=== PATIENT | female | born 1990 | race Caucasian/White ===

== ENCOUNTER 2018-12-07 12:51 | Outpatient (CLI) | payer BC, SELFPAY ==
[2018-12-07 13:22] LABS: Abs Immature Grans 0.01 k/cumm (0.0-0.09); Absolute Basophil Count 0.01 k/cumm (0.0-0.2); Absolute Eosinophil Count 0.08 k/cumm (0.0-0.7); Absolute Lymphocyte Count 1.65 k/cumm (1.2-3.4); Absolute Monocyte Count 0.47 k/cumm (0.11-0.7); Absolute Neutrophil Count 3.79 k/cumm (1.2-6.7); Basophils % 0.2; Eosinophils % 1.3; HGB 13.1 g/dL (12.0-15.5); Immature Grans % 0.2; Lymphocytes % 27.5; Mean Corp. HGB Concentration 34.5 g/dL (32.0-36.0); Mean Corpuscular Hemoglobin 28.8 pg (27.0-33.0); Mean Corpuscular Volume 83.5 fL (80-95); Mean Platelet Volume 10.1 fL (8.0-11.0); Monocytes % 7.8; Platelet Count 225 x1000/uL (130-400); RBC 4.55 m/cumm (4.00-5.20); RBC Distribution Width 12.1 % (11.7-14.6); White Blood Cell Count 6.01 k/cumm (4.4-10.8)
[2018-12-07 14:16] LABS: ALT 28 U/L (12-78); AST 22 U/L (15-37); Albumin 4.1 g/dL (3.4-5.0); Alkaline Phosphatase 61 U/L (46-116); Anion Gap 9.3 mmol/L (3-11); BUN 8 mg/dL (7-18); Bilirubin, Total 0.3 mg/dL (0.2-1.0); CO2 28.7 mmol/L (21.0-32.0); CREATININE 0.68 mg/dL (0.55-1.02); Calcium 8.9 mg/dL (8.5-10.1); Chloride 102 mmol/L (98-107); Glucose 80 mg/dL (70-100); Potassium 3.5 mmol/L (3.5-5.1); Sodium 140 mmol/L (136-145); Total Protein 7.1 g/dL (6.4-8.2)
== END 2018-12-07 13:11 ==
PROVIDERS: PCP Nurse Practitioner; Visit Provider Family Medicine
DX: K80.50 Calculus of bile duct without cholangitis or cholecystitis without obstruction (principal)
CPT/HCPCS: 36415; 80053; 85025

== ENCOUNTER 2018-12-10 01:20 | Outpatient (CLI) | payer BC, SELFPAY ==
--- NOTE | 2018-12-10 08:27 | DI.US_ITS ---
SYMPTOM/DIAGNOSIS: RUQ TENDERNESS WITH NAUSEA, VOMITING, BILIARY COLIC, K80.50, POSSIBLE CHOLECYSTITIS ABDOMEN ULTRASOUND: Comparison is made with CT of the abdomen dated 02/18/17. The liver and spleen are normal in size and echogenicity. There is no biliary dilatation. The gallbladder has a normal appearance, without evidence of stones or wall thickening. The pancreas, kidneys and aorta are unremarkable. There is no ascites. The IVC is mildly dilated which appears unchanged from previous CT. IMPRESSION: No evidence of gallbladder abnormality or biliary dilatation.
== END 2018-12-10 01:40 ==
PROVIDERS: PCP Nurse Practitioner; Visit Provider Family Medicine
DX: R10.11 Right upper quadrant pain (principal); R11.2 Nausea with vomiting, unspecified; K80.50 Calculus of bile duct without cholangitis or cholecystitis without obstruction
CPT/HCPCS: 76700

== ENCOUNTER 2019-02-03 12:13 | Outpatient (REF) | payer BC, SELFPAY ==
[2019-02-07 14:48] LABS: Chlamydia Result Negative; GC Result Negative; Specimen Description URINE
== END 2019-02-03 12:33 ==
LOC: LBN 12:13
PROVIDERS: PCP Nurse Practitioner; Visit Provider Nurse Practitioner
DX: Z11.3 Encounter for screening for infections with a predominantly sexual mode of transmission (principal)
CPT/HCPCS: 87491; 87591; 81003

== ENCOUNTER 2019-03-15 18:53 | Emergency (ER) | payer BC, SELFPAY ==
[2019-03-15 18:59] VITALS: BP 134/90; PULSE 103; RESP 20; TEMP 36.8; O2SAT 100
--- NOTE | 2019-03-15 19:24 | W.ED.GENAD ---
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 Tylenol and ibuprofen as needed for discomfort. Please follow-up with women's wellness for reevaluation. Number listed below. If you develop fever/chills, increased pain, heavy bleeding or other new/worsening symptoms please seek care urgently once again. We will contact you with any positive results from your outstanding tests. Referrals: Elisha Murillo MD [ [facility] STAFF PHYSICIAN] - Adrianna Jimenez NP [Primary Care Provider] - Medical Decision Making Patient is a 29-year-old female presents today with chief complaint of menorrhagia and menorrhagia for the past 6 months. She reports that over the past 6 months, she has had approximately 3 weeks/month of menstrual bleeding at times can be quite heavy. She is not bleeding currently. She reports that she is homosexual, denies being . No vaginal discharge. Has had irregular menses throughout her menstrual age. However, son typically does have a very or frequent. Is also noted more frequent bruising. States that over the past 6 months, she has had occasional lightheadedness when going from a squatting position to a standing position but that this is not reproducible or typical. Is hydrating well. On exam, she appears nontoxic. Abdomen is soft and benign. UPT is negative. Patient appears nontoxic. Vaginal exam is concerning for small cyst, these are consistent with cervical nabothian cyst. She also has notable cervical ectropion. She had clear vaginal discharge, this was sent for GC and chlamydia testing. She has been tested for STDs historically but not recently. Labs are reassuring. Patient is not anemic. PT PTT are normal. Urine shows trace amount of blood but this may be associated with her just finishing her menses recently. We will have her follow-up at this with her primary care. Have asked the patient follow-up with women's wellness regarding her menorrhagia and menorrhagia. She will call them tomorrow to schedule appointment. We did discuss oral contraceptive but she prefers indwelling not require taking a medication daily as she feels she will forget this. Patient was given strict return precautions. All questions and concerns were addressed she is agreement with this plan. HPI General Mode of arrival: ambulatory. Date/Time Provider Initiated Documentation: 03/15/19 19:04. Limitations to Documentation: no limitations. Information obtained by: patient and RN notes reviewed. History of Present Illness 29 year old F presents to the emergency department with the chief complaint of menorrhagia, metrorrhagia, described as moderate, Quality is described as aching (low central abdominal discomfort, cramping), and is localized to the abdomen. Patient reports no radiation. Patient started experiencing this month(s) (6) and it has been intermittent. No relieving factors improve symptom(s), No exacerbating factors reported . Patient notes loss of appetite (associates with her adderall) and weakness (feels lightheaded occasionally when going to standing position after squatting); denies chest pain, cough, fever/chills, headaches, malaise, nausea/vomiting, rash and shortness of breath. Patient did receive the following treatments prior to arrival, none Related Data Home Medications Medication Instructions Recorded Confirmed dextroamphetamine-amphetamine ER 30 mg PO QAM #30 cap MDD 30mg 01/13/19 03/15/19 30 mg 24hr capsule,extend release spironolactone 100 mg PO HS 03/15/19 03/15/19 Previous Rx's Medication Instructions Recorded dextroamphetamine-amphetamine ER 30 mg PO QAM #30 cap MDD 30mg 01/13/19 30 mg 24hr capsule,extend release Allergies Allergy/AdvReac Type Severity Reaction Status Date / Time gluten AdvReac Mild Abdomen Verified 03/15/19 19:07 Bloating lactose AdvReac Mild Abdomen Verified 03/15/19 19:07 bloating 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 Review of Systems Constitutional Reports as per HPI, Denies chills, Denies fatigue, Denies fever(s) and Denies headache(s) ENT Denies headache(s) Cardiovascular Reports as per HPI, Denies chest pain and Denies dyspnea Respiratory Reports as per HPI, Denies cough and Denies dyspnea Gastrointestinal Reports as per HPI Genitourinary Reports as per HPI, Reports abnormal menses, Reports abnormal vaginal bleeding, Reports metrorrhagia, Denies urinary frequency, Denies genital pruritis, Denies genital lesions, Reports menorrhagia, Denies dyspareunia, Denies urinary urgency, Denies vaginal discharge (is not currently bleeding, no unusual discharge) and Denies vaginal odor Musculoskeletal Reports as per HPI and Denies back pain Integumentary/Breasts Reports as per HPI and Denies rash Neurologic Reports as per HPI and Denies headache(s) Endocrine Denies fatigue [facility] Medical History ADD (attention deficit disorder) (Acute) Crohns disease (Chronic) Irregular menstrual cycle Surgical History Endoscopy Tonsillectomy wisdom teeth extraction Social History Smoking/Tobacco Use Status: Former Tobacco Use Alcohol Intake: current Alcohol Intake frequency: holidays/special occasions only Drug use: Occasionally Substance use type: marijuana Adopted: No Housing: apartment Number of Children: 0 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 What type of physical activity do you participate in: irregular exercise Frequency: other Details: active w/kids at work Do you feel safe at home: Yes Do you feel safe in your relationship?: Yes Exam Const General: cooperative, healthy appearing, comfortable, no acute distress and well developed Nutritional Appearance: average body habitus and well nourished Orientation: alert and awake [facility] Head: normal to inspection Mouth: moist mucous membranes Resp Effort & Inspection: normal respiratory effort, able to speak in complete sentences and no respiratory distress Auscultation: clear to auscultation bilaterally, no rales, no rhonchi and no wheezes Cardio Rate: regular rate Rhythm: regular rhythm Heart Sounds: S1 normal and S2 normal GI Inspection: normal to inspection and non-distended Palpation: soft, no hepatosplenomegaly, not firm, no guarding, not rigid and nontender Percussion: normal to percussion Auscultation: normal bowel sounds External Female Exam: external appearance normal, normal appearance of the urethra, no erythema, no tenderness externally, no external swelling and no lesions Speculum Exam - Vagina: normal appearance of the vagina, normal vaginal discharge, not erythematous, no lacerations, No vaginal bleeding, no swelling and nontender Speculum Exam - Cervix: normal appearance of the cervix (cervical ectropion noted), nabothian cyst (4 small cysts around inferior aspect 5-8 o'clock) and nontender Bimanual Exam- Vagina & Uterus: No cervical tenderness Bimanual Exam- Adnexa, other: normal adnexae, no adnexal masses and no tenderness OB/External & Speculum: No vaginal bleeding Back/Spine/Pelvis Back: no CVA tenderness Skin General skin exam: no rashes or lesions noted Trauma: no lacerations or abrasions Neuro General: alert and awake Cognition: normal cognition Speech: speech normal Gait: normal gait Psych Appearance: grossly normal and well kempt Mental Status: mental status grossly normal Speech and Movement: speech and movement normal Course Vital Signs Temperature 36.8 C 03/15/19 18:59 Pulse 103 H 03/15/19 18:59 Respiratory Rate 20 03/15/19 18:59 Blood Pressure 134/90 03/15/19 18:59 Pulse Oximetry 100 03/15/19 18:59 Temperature 36.8 C 03/15/19 18:59 Temperature Source Skin 03/15/19 18:59 Pulse 103 H 03/15/19 18:59 Respiratory Rate 20 03/15/19 18:59 Respiratory Effort Non-Labored 03/15/19 19:05 Blood Pressure 134/90 03/15/19 18:59 Blood Pressure Position Sitting 03/15/19 18:59 Pulse Oximetry 100 03/15/19 18:59 Oxygen Delivery Method Room Air 03/15/19 18:59 Oxygen Flow Rate 0 03/15/19 18:59
[2019-03-15 19:39] LABS: Bilirubin Negative (Negative); Blood Trace-intact (Negative); Clarity Clear; Glucose Negative (Negative); Ketones Negative (Negative); Leukocyte Esterase Negative (Negative); Nitrite Negative (Negative); Specific Gravity 1.015 (1.005-1.025); Urobilinogen 0.2 EU/dL (Up TO 0.2); pH 7.5 (5-8)
[2019-03-15 19:52] LABS: WBC Negative HPF (0-5)
[2019-03-15 19:53] LABS: Bacteria Rare HPF (Negative); C & S Indicated? No; Casts Negative LPF (Negative); Crystals Negative HPF (Negative); Epithelial Cells Few HPF (Negative); Mucus Negative (Negative); RBC 0-2 (0-2)
--- NOTE | 2019-03-15 20:00 | ED.GENADUL_ITS ---
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 Tylenol and ibuprofen as needed for discomfort. Please follow-up with women's wellness for reevaluation. Number listed below. If you develop fever/chills, increased pain, heavy bleeding or other new/worsening symptoms please seek care urgently once again. We will contact you with any positive results from your outstanding tests. Referrals: Elisha Murillo MD [ [facility] STAFF PHYSICIAN] - Adrianna Jimenez NP [Primary Care Provider] - Medical Decision Making Patient is a 29-year-old female presents today with chief complaint of menorrhagia and menorrhagia for the past 6 months. She reports that over the past 6 months, she has had approximately 3 weeks/month of menstrual bleeding at times can be quite heavy. She is not bleeding currently. She reports that she is homosexual, denies being . No vaginal discharge. Has had irregular menses throughout her menstrual age. However, son typically does have a very or frequent. Is also noted more frequent bruising. States that over the past 6 months, she has had occasional lightheadedness when going from a squatting position to a standing position but that this is not reproducible or typical. Is hydrating well. On exam, she appears nontoxic. Abdomen is soft and benign. UPT is negative. Patient appears nontoxic. Vaginal exam is concerning for small cyst, these are consistent with cervical nabothian cyst. She also has notable cervical ectropion. She had clear vaginal discharge, this was sent for GC and chlamydia testing. She has been tested for STDs historically but not recently. Labs are reassuring. Patient is not anemic. PT PTT are normal. Urine shows trace amount of blood but this may be associated with her just finishing her menses recently. We will have her follow-up at this with her primary care. Have asked the patient follow-up with women's wellness regarding her menorrhagia and menorrhagia. She will call them tomorrow to schedule appointment. We did discuss oral contraceptive but she prefers indwelling not require taking a medication daily as she feels she will forget this. Patient was given strict return precautions. All questions and concerns were addressed she is agreement with this plan. HPI General Mode of arrival: ambulatory . Date/Time Provider Initiated Documentation: 03/15/19 19:04 . Limitations to Documentation: no limitations . Information obtained by: patient and RN notes reviewed . History of Present Illness 29 year old F presents to the emergency department with the chief complaint of menorrhagia, metrorrhagia, described as moderate, Quality is described as aching (low central abdominal discomfort, cramping), and is localized to the abdomen. Patient reports no radiation. Patient started experiencing this month(s) (6) and it has been intermittent. No relieving factors improve symptom(s), No exacerbating factors reported . Patient notes loss of appetite (associates with her adderall) and weakness (feels lightheaded occasionally when going to standing position after squatting); denies chest pain, cough, fever/chills, headaches, malaise, nausea/vomiting, rash and shortness of breath. Patient did receive the following treatments prior to arrival, none Related Data Home Medications Medication Instructions Recorded Confirmed dextroamphetamine-amphetamine ER 30 mg PO QAM #30 cap MDD 30mg 01/13/19 03/15/19 30 mg 24hr capsule,extend release spironolactone 100 mg PO HS 03/15/19 03/15/19 Previous Rx's Medication Instructions Recorded dextroamphetamine-amphetamine ER 30 mg PO QAM #30 cap MDD 30mg 01/13/19 30 mg 24hr capsule,extend release Allergies Allergy/AdvReac Type Severity Reaction Status Date / Time gluten AdvReac Mild Abdomen Verified 03/15/19 19:07 Bloating lactose AdvReac Mild Abdomen Verified 03/15/19 19:07 bloating 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 Review of Systems Constitutional Reports as per HPI, Denies chills, Denies fatigue, Denies fever(s) and Denies headache(s) ENT Denies headache(s) Cardiovascular Reports as per HPI, Denies chest pain and Denies dyspnea Respiratory Reports as per HPI, Denies cough and Denies dyspnea Gastrointestinal Reports as per HPI Genitourinary Reports as per HPI, Reports abnormal menses, Reports abnormal vaginal bleeding, Reports metrorrhagia, Denies urinary frequency, Denies genital pruritis, Denies genital lesions, Reports menorrhagia, Denies dyspareunia, Denies urinary urgency, Denies vaginal discharge (is not currently bleeding, no unusual discharge) and Denies vaginal odor Musculoskeletal Reports as per HPI and Denies back pain Integumentary/Breasts Reports as per HPI and Denies rash Neurologic Reports as per HPI and Denies headache(s) Endocrine Denies fatigue [facility] Medical History ADD (attention deficit disorder) (Acute) Crohns disease (Chronic) Irregular menstrual cycle Surgical History Endoscopy Tonsillectomy wisdom teeth extraction Social History Smoking/Tobacco Use Status: Former Tobacco Use Alcohol Intake: current Alcohol Intake frequency: holidays/special occasions only Drug use: Occasionally Substance use type: marijuana Adopted: No Housing: apartment Number of Children: 0 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 What type of physical activity do you participate in: irregular exercise Frequency: other Details: active w/kids at work Do you feel safe at home: Yes Do you feel safe in your relationship?: Yes Exam Const General: cooperative, healthy appearing, comfortable, no acute distress and well developed Nutritional Appearance: average body habitus and well nourished Orientation: alert and awake [facility] Head: normal to inspection Mouth: moist mucous membranes Resp Effort & Inspection: normal respiratory effort, able to speak in complete sentences and no respiratory distress Auscultation: clear to auscultation bilaterally, no rales, no rhonchi and no wheezes Cardio Rate: regular rate Rhythm: regular rhythm Heart Sounds: S1 normal and S2 normal GI Inspection: normal to inspection and non-distended Palpation: soft, no hepatosplenomegaly, not firm, no guarding, not rigid and nontender Percussion: normal to percussion Auscultation: normal bowel sounds External Female Exam: external appearance normal, normal appearance of the urethra, no erythema, no tenderness externally, no external swelling and no lesions Speculum Exam - Vagina: normal appearance of the vagina, normal vaginal discharge, not erythematous, no lacerations, No vaginal bleeding, no swelling and nontender Speculum Exam - Cervix: normal appearance of the cervix (cervical ectropion noted), nabothian cyst (4 small cysts around inferior aspect 5-8 o'clock) and nontender Bimanual Exam- Vagina & Uterus: No cervical tenderness Bimanual Exam- Adnexa, other: normal adnexae, no adnexal masses and no tenderness OB/External & Speculum: No vaginal bleeding Back/Spine/Pelvis Back: no CVA tenderness Skin General skin exam: no rashes or lesions noted Trauma: no lacerations or abrasions Neuro General: alert and awake Cognition: normal cognition Speech: speech normal Gait: normal gait Psych Appearance: grossly normal and well kempt Mental Status: mental status grossly normal Speech and Movement: speech and movement normal Course Vital Signs Temperature 36.8 C 03/15/19 18:59 Pulse 103 H 03/15/19 18:59 Respiratory Rate 20 03/15/19 18:59 Blood Pressure 134/90 03/15/19 18:59 Pulse Oximetry 100 03/15/19 18:59 Temperature 36.8 C 03/15/19 18:59 Temperature Source Skin 03/15/19 18:59 Pulse 103 H 03/15/19 18:59 Respiratory Rate 20 03/15/19 18:59 Respiratory Effort Non-Labored 03/15/19 19:05 Blood Pressure 134/90 03/15/19 18:59 Blood Pressure Position Sitting 03/15/19 18:59 Pulse Oximetry 100 03/15/19 18:59 Oxygen Delivery Method Room Air 03/15/19 18:59 Oxygen Flow Rate 0 03/15/19 18:59
[2019-03-15 20:03] LABS: Abs Immature Grans 0.03 k/cumm (0.0-0.09); Absolute Basophil Count 0.01 k/cumm (0.0-0.2); Absolute Eosinophil Count 0.03 k/cumm (0.0-0.7); Absolute Monocyte Count 0.43 k/cumm (0.11-0.7); Absolute Neutrophil Count 6.91 k/cumm (1.2-6.7); Basophils % 0.1; Eosinophils % 0.3; HCT 36.9 % (36.0-46.0); HGB 12.6 g/dL (12.0-15.5); Immature Grans % 0.3; Lymphocytes % 21.3; Mean Corp. HGB Concentration 34.1 g/dL (32.0-36.0); Mean Corpuscular Hemoglobin 29.1 pg (27.0-33.0); Mean Corpuscular Volume 85.2 fL (80-95); Mean Platelet Volume 9.6 fL (8.0-11.0); Monocytes % 4.6; Neutrophils % 73.4; Platelet Count 258 x1000/uL (130-400); RBC 4.33 m/cumm (4.00-5.20); RBC Distribution Width 12.9 % (11.7-14.6); White Blood Cell Count 9.41 k/cumm (4.4-10.8)
[2019-03-15 20:17] LABS: INR 1.1 (0.9-1.1); PTT Activated 25.4 sec (21.0-31.4); Prothrombin Time 10.6 sec (9.3-11.0)
[2019-03-15 20:26] LABS: ALT 19 U/L (12-78); AST 16 U/L (15-37); Albumin 4.1 g/dL (3.4-5.0); Alkaline Phosphatase 67 U/L (46-116); Anion Gap 9.4 mmol/L (3-11); BUN 6 mg/dL (7-18); Bilirubin, Total 0.4 mg/dL (0.2-1.0); CO2 25.6 mmol/L (21.0-32.0); CREATININE 0.65 mg/dL (0.55-1.02); Chloride 104 mmol/L (98-107); Glucose 105 mg/dL (70-100); Potassium 3.8 mmol/L (3.5-5.1); Sodium 139 mmol/L (136-145); Total Protein 7.4 g/dL (6.4-8.2)
[2019-03-15 21:25] VITALS: PULSE 107; O2SAT 96
== END 2019-03-15 22:21 | disposition home or self-care (01) ==
PROVIDERS: Emergency Provider Physician Assistant; PCP Nurse Practitioner
DX: N93.9 Abnormal uterine and vaginal bleeding, unspecified (principal); N88.8 Other specified noninflammatory disorders of cervix uteri
CPT/HCPCS: 36415; 80053; 81025; 99283; 81003; 81015; 84443; 85025; 85610; 85730

== ENCOUNTER 2019-03-16 15:44 | Outpatient (REF) | payer BC, SELFPAY ==
[2019-03-17 14:22] LABS: Chlamydia Result Negative; GC Result Negative; Specimen Description CERVIX
== END 2019-03-16 16:04 ==
LOC: LBN 15:44
PROVIDERS: PCP Nurse Practitioner; Visit Provider Nurse Practitioner Women's Health
DX: Z11.3 Encounter for screening for infections with a predominantly sexual mode of transmission (principal)
CPT/HCPCS: 87491; 87591

== ENCOUNTER 2019-03-17 00:47 | Outpatient (CLI) | payer BC, SELFPAY ==
--- NOTE | 2019-03-17 14:00 | DI.US_ITS ---
SYMPTOMS/DIAGNOSIS: RIGHT-SIDED PELVIC PAIN, ABNORMAL UTERINE BLEEDING, R10.2 PELVIC ULTRASOUND: A transabdominal and transvaginal examination was carried out. The uterus measures 6 cm in length, 3.4 cm in height and 3.8 cm in width with an endometrial stripe thickness of 5.2 mm. Prominent uterine vessels are demonstrated. The right ovary measures 4.7 x 1.7 x 2.8 cm and contains a 1.4 x 1 x 1.7 cm cyst. The left ovary measures 3. x 1.7 x 2.1 cm. A paraovarian cyst measures 1 x 0.9 x 1.7 cm. There is no evidence of free fluid in the cul-de-sac. The right kidney measures 10.5 cm, the left kidney 10.7 cm. There is no evidence of hydronephrosis. SUMMARY: A right ovarian cyst measures 1.4 x 1 x 1.7 cm and could represent a corpus luteum cyst. There is a 1 x 0.9 x 1.7 cm cyst in the left paraovarian region.
== END 2019-03-17 01:07 ==
PROVIDERS: PCP Nurse Practitioner; Visit Provider Nurse Practitioner Women's Health
DX: R10.2 Pelvic and perineal pain (principal); N93.9 Abnormal uterine and vaginal bleeding, unspecified; N83.11 Corpus luteum cyst of right ovary; N83.292 Other ovarian cyst, left side
CPT/HCPCS: 76830; 76856

== ENCOUNTER 2020-06-23 19:46 | Emergency (ER) | payer SELFPAY ==
[2020-06-23 19:57] VITALS: BP 131/96; RESP 18; TEMP 36.5; O2SAT 100
--- NOTE | 2020-06-23 20:00 | DI.CT_ITS ---
EXAM: CT ABDOMEN PELVIS W CLINICAL HISTORY: pelvic pain/L flank, hx of cysts and kidney stones. TECHNIQUE: Imaging Protocol: Axial computed tomography images with coronal and sagittal reformatted images were created and reviewed CONTRAST MATERIAL: Intravenous: Omnipaque 350 Contrast volume:80 ml Oral: no COMPARISON: CT ABD PELVIS WITH CONTRAST from 02/18/2017 FINDINGS: The exam is limited by lack of oral contrast and lack of intra-abdominal fat. ABDOMEN: Lung Bases: Normal where visualized. Liver: Normal density. No measurable mass. Gallbladder and biliary tract: No radiodense calculus or dilation. Pancreas: Normal density, no abnormal calcifications or inflammatory process. Spleen: Normal. Kidneys: Incomplete rotation of the right kidney.. No radiodense stones or obstructive uropathy. No masses seen. Adrenal glands: No masses seen. Abdominal Aorta: Abdominal portion non-dilated. PELVIS: Bladder: Nearly empty. Bowel: No obstruction or bowel wall thickening. Appendix not visualized. The cecum per projects low and posteriorly in the pelvis. Peritoneal cavity: There is free fluid in the cul-de-sac.. Bones: Within normal limits. Reproductive organs: Within normal limits. Lymph nodes: 3.3 centimeter right ovarian cyst. Uterus is normal in size. There are prominent pelvi c vessels, greater on the left side which was seen on the previous exam. Findings could represent pe lvic congestion syndrome. Impression: 3.3 centimeter right ovarian cyst. Small amount fluid in the cul-de-sac. Prominent periuterine vein s which could represent pelvic congestion syndrome. RADIATION DOSE DELIVERED: 551.02mGy.cm Total DLP DATA REPOSITORY: All CT scans at this facility are submitted to the National Radiology Data Registry (NRDR) Dose Index Registry (DIR) with the [employer] ([employer]). RADIATION OPTIMIZATION: All CT scans at this facility use at least one of these dose optimization te chniques: automated exposure control; mA and/or kV adjustment per patient size (includes targeted exa ms where dose is matched to clinical indication); or iterative reconstruction.
[2020-06-23 20:01] LABS: Bilirubin Small (Negative); Blood Small (Negative); Clarity Clear (Clear); Glucose Negative (Negative); Ketones 40 mg/dL (Negative); Leukocyte Esterase Negative (Negative); Nitrite Negative (Negative); Specific Gravity >= 1.030 (1.005-1.025); Urobilinogen 0.2 EU/dL (Up TO 0.2); pH 5.5 (5-8)
--- NOTE | 2020-06-23 20:08 | W.ED.GENAD ---
Discharge Plan Disposition Patient Disposition: HOME Condition: Good Discharge Details Clinical Impression: Unspecified ovarian cyst, right side, Vaginal spotting, Pelvic pain, Lesion of uterus, Gardnerella vaginitis Primary Care Provider: Adrianna Jimenez ED Provider: Bernabe Contreras Home Meds and New Rx's Prescriptions: New metronidazole 500 mg tablet 500 mg PO BID Qty: 20 RF: 0 Continued tretinoin [Retin-A] 0.1 % cream 1 applic TP QHS Qty: 20 RF: 6 spironolactone 100 mg tablet 150 mg PO DAILY Qty: 135 RF: 0 doxycycline monohydrate 100 mg capsule 100 mg PO BID RF: 0 Discharge Instructions Instructions: Ovarian Cyst (ED) Additional Instructions: At this time you have a large cyst in your right ovary. It did cause mild bleeding which is likely the cause of your pain. At this time there is no evidence of a surgical emergency, however if you notice any worsening or change in your pain, any worsening vaginal bleeding, return immediately for reassessment. Dr. Murillo of gynecology will be contacting you this weekend. Please follow-up closely with her this week. Please take 1000 mg of Tylenol every 6 hours and 800 mg of ibuprofen every 6 hours to help with the pain. Drink plenty of fluids. You will need an ultrasound on an outpatient basis for further assessment. If you do decide to take 1 of the Barry pain pills, do not take any Tylenol with it as it already has a small dose of Tylenol in it. You also have a lesion on your uterus, this is not overly concerning but certainly does need further evaluation. Dr. Murillo will follow up with you with this. Additionally you also have mild bacterial vaginosis which is from a type of bacteria that is not an STD. It is naturally occurring in the pelvic region however sometimes it can grow and cause some irritation. I suspect this is a component of your symptoms but not the only cause of your pain. Please take the metronidazole as directed. Make sure to drink no alcohol when taking this medication as it can cause a significant reaction. Additionally we are still pending results from gonorrhea and chlamydia. It is very unlikely that you have this, however it does take 2 to 3 days to come back. You can follow-up with Dr. Murillo about this. If you notice any worsening of your symptoms, or any new symptoms such as vomiting, diarrhea, fever, chills, shortness of breath, chest pain, numbness, weakness, or fainting , please return immediately to the emergency department for reevaluation. Please follow up with your primary care provider as soon as possible for reassessment and reevaluation. As always, it was a pleasure participating in your medical care today. Referrals: Elisha Mruillo MD [ [facility] STAFF PHYSICIAN] - Medical Decision Making 30-year-old female with a past medical history of ovarian cyst/corpus luteal cyst, asthma, presents today for evaluation of vaginal spotting, urinary pain and pelvic pain. Patient states that over the last 2 to 3 months she has had intermittent vaginal spotting both with and without her periods. The patient states that she is sexually active with a female only, and does not have heterosexual intercourse. She denies any history of STDs. She does not take control. This evening she had sudden onset severe pelvic and left-sided pelvic/flank pain that occurred when she urinated. She did not notice any blood. The pain subsided when she stopped urinating. Since then she has had mild achiness on the left and right pelvic regions more primarily on the left though. She denies any vomiting or diarrhea. She denies any hematochezia or melena. She denies history of kidney stones. Patient does have a strong family history of kidney stones especially in her sister who is had multiple kidney stones. Family history is also positive for breast cancer and ovarian cancer. Patient has no other complaints at this time. No other modifying factors. Of note the patient does state that there was a concern for Crohn's disease in her past, however after colonoscopy she was found not to have Crohn's disease at all. Physical exam demonstrates mild left lower pelvic pain, as well as left-sided flank tenderness. Vital signs are stable. We will perform pelvic exam, differential does include kidney stone with her strong family history and urinary symptomatology but also ovarian cysts as a potential cause of her spotting and pain. Symptoms appear inconsistent with ovarian torsion at this time clinically. Ultrasonography is unavailable. We will get a CT scan with contrast for further evaluation of stone and cyst. We will monitor closely. Currently the patient has no pain whatsoever and does not want any pain medications. 10:08 PM Laboratory work-up is returned relatively benign, no white count, hemoglobin stable. Urinalysis negative for evidence of infection. Vaginal path screen is positive for Gardnerella, negative for trichomoniasis or Margarette. Will treat with metronidazole p.o. [address] scan has returned, no evidence of kidney stones, there is evidence of a large right-sided ovarian cyst, with a rim enhancing component which is asymmetric. There is mild amount of free fluid as well. There is also heterogenicity of the uterus and a hyperdensity within the fundal endometrium for which an endometrial polyp or other pathology could be present. Vaginal exam was performed does not demonstrate a chandelier sign, minimal tenderness on palpation of the cervix, symptoms clinically inconsistent with infectious PID. Additionally repeat exam demonstrates symptoms inconsistent with ovarian torsion as well. No indication for emergent transfer to [facility] for ultrasonography at this time. However symptoms certainly do need prompt follow-up. I did contact Dr. Murillo from OB, discussed the radiologic findings, as well as the current clinical presentation. With no evidence of an acute surgical or pelvic abdomen at this time, he had no clinical signs of ovarian torsion or severe PID at this time, Dr. Murillo feels that the patient can follow-up promptly with her on an outpatient basis for evaluation and ultrasonography. I spent a long and thorough time discussing with the patient the importance of self-monitoring and if she has any worsening of her symptoms whatsoever or continuation without resolution that she should return immediately to the ED for reevaluation and reassessment. Patient understands this. She will follow-up closely with Dr. Murillo. Dr. Murillo has also stated that she will be calling the patient this weekend for follow-up. I have extensively reviewed the treatment plan and discharge instructions with the patient. I have addressed all patient concerns at this time. The patient was made aware of what symptoms to monitor for that would warrant a return to the emergency department. Discussed the plan with the patient, they demonstrate verbal understanding and agreement with our assessment and plan at this time. FINDINGS: Liver: Homogeneous liver. Gallbladder and bile ducts: No calcified gallstones identified. Pancreas: Homogeneous pancreas. Spleen: No splenomegaly. Adrenals: Normal appearance to the adrenal glands. 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 No hydronephrosis. No renal or ureteral calculi seen. Stomach and bowel: No evidence of bowel obstruction. Moderate amount of stool within the loops of colon within the pelvis. This can be seen with constipation. Appendix: The appendix is not clearly seen. If there is clinical concern for appendicitis, oral contrast recommended. Intraperitoneal space: There is a small to moderate amount of free fluid in the pelvis. No free air. Vasculature: No abdominal aortic aneurysm. Lymph nodes: No pathologic lymph node enlargement. Urinary bladder: Urinary bladder wall prominence. This can be seen with infection or underdistention Reproductive: Heterogeneous uterus with prominent periuterine vessels. This can be seen chronically or with infection. There appears to be a hyperdensity within the fundal endometrium on series 4, image 67 for which an endometrial polyp or pathology is not excluded. There is a rim enhancing 3.3 cm 12 Hounsfield unit cystic structure in the right ovary. A candidate for the left ovary is on series 6, image 36. It is smaller than the right ovary. The left ovary contains a small 1 cm cystic structure. Bones/joints: Scoliosis. Soft tissues: Unremarkable. IMPRESSION: 1. No hydronephrosis. No renal or ureteral calculi seen. 2. Heterogeneous uterus with prominent periuterine vessels. This can be seen chronically (such as with pelvic congestion syndrome) or with infection. There is also a hyperdensity within the fundal endometrium for which an endometrial polyp or other pathology is not excluded. Rim enhancing cystic structure in the right ovary which is asymmetrically larger than the left. Ultrasound recommended for further evaluation of these findings. If there is clinical concern for torsion, given the ovarian asymmetry, it is recommended that the ultrasound be performed with Doppler analysis. 3. Urinary bladder wall prominence. This can be seen with infection or underdistention. 4. Small to moderate amount of free fluid in the pelvis. Findings suggesting a component of constipation. Other findings/details as above. THIS REPORT CONTAINS FINDINGS THAT MAY BE CRITICAL TO PATIENT CARE. The findings were verbally communicated via telephone conference with BERNABE CONTRERAS at 9:14 PM EDT on 06/23/2020. The findings were acknowledged and understood. Thank you for allowing us to participate in the care of your patient. Dictated and Authenticated by: Huma Mendoza MD 06/23/2020 9:28 PM Eastern Time ([place] & [place]) HPI General Date/Time Provider Initiated Documentation: 06/23/20 20:06. HPI Narrative: 30-year-old female with a past medical history of ovarian cyst/corpus luteal cyst, asthma, presents today for evaluation of vaginal spotting, urinary pain and pelvic pain. Patient states that over the last 2 to 3 months she has had intermittent vaginal spotting both with and without her periods. The patient states that she is sexually active with a female only, and does not have heterosexual intercourse. She denies any history of STDs. She does not take control. This evening she had sudden onset severe pelvic and left-sided pelvic/flank pain that occurred when she urinated. She did not notice any blood. The pain subsided when she stopped urinating. Since then she has had mild achiness on the left and right pelvic regions more primarily on the left though. She denies any vomiting or diarrhea. She denies any hematochezia or melena. She denies history of kidney stones. Patient does have a strong family history of kidney stones especially in her sister who is had multiple kidney stones. Family history is also positive for breast cancer and ovarian cancer. Patient has no other complaints at this time. No other modifying factors. Of note the patient does state that there was a concern for Crohn's disease in her past, however after colonoscopy she was found not to have Crohn's disease at all. Related Data Home Medications Medication Instructions Recorded Confirmed tretinoin 0.1 % topical cream 1 applic TP QHS #20 gm 04/24/20 06/23/20 spironolactone 100 mg tablet 150 mg PO DAILY #135 tab 05/03/20 06/23/20 doxycycline monohydrate 100 mg 100 mg PO BID 05/25/20 capsule metronidazole 500 mg PO BID #20 tab 06/23/20 Previous Rx's Medication Instructions Recorded tretinoin 0.1 % topical cream 1 applic TP QHS #20 gm 04/24/20 spironolactone 100 mg tablet 150 mg PO DAILY #135 tab 05/03/20 metronidazole 500 mg PO BID #20 tab 06/23/20 Allergies Allergy/AdvReac Type Severity Reaction Status Date / Time gluten AdvReac Mild Abdomen Verified 06/23/20 20:08 Bloating lactose AdvReac Mild Abdomen Verified 06/23/20 20:08 bloating General 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 Grandmother No problems noted. 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 Sexually active: Yes Do you think of yourself as: lesbian/valenzuela/homosexual Current gender identity: female What type of physical activity do you participate in: irregular exercise Frequency: other Details: active w/kids at work Do you feel safe at home: Yes Do you feel safe in your relationship?: Yes Female Reproductive History Menstrual Age of Menarche: 13 control method: progestin IUCD (03/24/19 Mirena IUD inserted today LOT# [id number] EXP 08/2021) History History 2 Para Hx # Term Pregnancies Multiple births Hx # Pregnancies Ectopic pregnancies AB induced Hx Number of Living Children AB spontaneous 2 Exam Narrative Exam Narrative: 1.Const: Well-nourished, Well-developed, appearing stated age 2.Eyes: PERRL, no conjunctival injection, and symmetrical lids. 3.ENT: Atraumatic external nose and ears. Moist MM. Neck: Symmetric, trachea midline, No thyromegaly. 4.CVS: +S1/S2, No murmurs or gallops. Peripheral pulses 2+ and equal in all extremities. Brisk capillary refill in all extremities. 5.RESP: Unlabored respiratory effort. Clear to auscultation bilaterally. No wheezes rales or rhonchi 6.GI: Soft, mild tenderness in the left lower pelvic region, mild left CVA tenderness. No significant right lower quadrant tenderness. Mild suprapubic tenderness. No pain at McBurney's point, negative Roper sign. Vaginal exam was performed with female nurse Isa at bedside. Exam demonstrates tenderness on bimanual exam bilaterally and equivalently, minimal cervical tenderness but no significant cervical motion tenderness to speak of. Small amount of blood coming from the cervical loss, no significant lesions on the cervix itself. Genital exam otherwise unremarkable. 7.MSK: Normocephalic/Atraumatic, Extremities w/o deformity or ttp No cyanosis or clubbing, Normal movement of all extremities 8.Skin: Warm, Dry. No rashes or lesions. 9.Neuro: recordist chief II-XII grossly intact. Sensation grossly intact, no focal neurologic deficits. 10.Psych: (AAO) x3. Appropriate mood and affect Course Vital Signs Vital signs: Vital Signs Temperature 36.5 C 06/23/20 19:57 Respiratory Rate 18 06/23/20 19:57 Blood Pressure 131/96 H 06/23/20 19:57 Pulse Oximetry 100 06/23/20 19:57 Temperature 36.5 C 06/23/20 19:57 Temperature Source Skin 06/23/20 19:57 Respiratory Rate 18 06/23/20 19:57 Respiratory Effort Non-Labored 06/23/20 20:05 Blood Pressure 131/96 H 06/23/20 19:57 Blood Pressure Position Sitting 06/23/20 19:57 Pulse Oximetry 100 06/23/20 19:57 Oxygen Delivery Method Room Air 06/23/20 19:57 Oxygen Flow Rate 0 06/23/20 19:57 Pain Level 7 06/23/20 20:05 Lab/Test Results Lab/Test Results: POC Urine Test Start: 06/23/20 19:50 Freq: Status: Complete Protocol: Document 06/23/20 20:00 CT (Rec: 06/23/20 20:00 CT ER10) Test(Urine)-POC POC- Test(urine) Negative POC- Test(urine) Negative
[2020-06-23 20:15] LABS: Bacteria Few HPF (Negative); C & S Indicated? No; Casts Negative LPF (Negative); Crystals Few Amorphous HPF (Negative); Epithelial Cells Few HPF (Negative); Mucus Negative (Negative)
[2020-06-23 20:32] LABS: Abs Immature Grans 0.04 10^3/uL (0.0-0.06); Absolute Basophil Count 0.02 10^3/uL (0.0-0.2); Absolute Eosinophil Count 0.01 10^3/uL (0.0-0.7); Absolute Lymphocyte Count 1.85 10^3/uL (1.2-3.4); Absolute Monocyte Count 0.58 10^3/uL (0.1-0.8); Absolute Neutrophil Count 8.24 10^3/uL (1.2-6.7); Basophils % 0.2; Eosinophils % 0.1; HCT 40.6 % (36.0-46.0); Immature Grans % 0.4; Lymphocytes % 17.2; MCH 29.4 pg (27.0-33.0); MCHC 34.5 % (32.0-36.0); MCV 85.1 fL (80-95); Monocytes % 5.4; Neutrophils % 76.7; Nucleated RBC 0 %; Platelet Count 290 10^3/uL (130-400); RBC 4.77 10^6/uL (3.93-5.22); WBC 10.74 10^3/uL (4.4-10.8)
[2020-06-23] MEDS: Omnipaque 350 MG/ML 100 ML BTL IJ (20:40)
[2020-06-23] MEDS: Normal Saline - Diluent 50 ML VIAL IV (20:40)
[2020-06-23 20:42] LABS: ALT 22 U/L (14-59); AST 20 U/L (15-37); Albumin 4.3 g/dL (3.4-5.0); Alkaline Phosphatase 50 U/L (46-116); Anion Gap 13.4 mmol/L (3-11); BUN 9 mg/dL (7-18); Bilirubin, Total 0.7 mg/dL (0.2-1.0); CO2 21.6 mmol/L (21.0-32.0); CREATININE 0.84 mg/dL (0.55-1.02); Chloride 100 mmol/L (98-107); Glucose 100 mg/dL (74-106); Potassium 3.4 mmol/L (3.5-5.1); Sodium 135 mmol/L (136-145); Total Protein 7.5 g/dL (6.4-8.2)
[2020-06-23] MEDS: Normal Saline 500 ML IV (20:50)
[2020-06-23] MEDS: Ketorolac 30 MG/ML VIAL IVP (20:52)
--- NOTE | 2020-06-23 21:29 | DI.VRAD_ITS ---
PROCEDURE INFORMATION: Exam: CT Abdomen And Pelvis With Contrast Exam date and time: 06/23/2020 8:08 PM Age: 30 years old Clinical indication: Abdominal pain; Left; Patient HX: Pelvic pain/l flank, HX of cysts and kidney stones TECHNIQUE: Imaging protocol: Computed tomography of the abdomen and pelvis with intravenous contrast. COMPARISON: CT ABD PELVIS WITH CONTRAST 02/18/2017 7:02 PM FINDINGS: Liver: Homogeneous liver. Gallbladder and bile ducts: No calcified gallstones identified. Pancreas: Homogeneous pancreas. Spleen: No splenomegaly. Adrenals: Normal appearance to the adrenal glands. 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 No hydronephrosis. No renal or ureteral calculi seen. Stomach and bowel: No evidence of bowel obstruction. Moderate amount of stool within the loops of colon within the pelvis. This can be seen with constipation. Appendix: The appendix is not clearly seen. If there is clinical concern for appendicitis, oral contrast recommended. Intraperitoneal space: There is a small to moderate amount of free fluid in the pelvis. No free air. Vasculature: No abdominal aortic aneurysm. Lymph nodes: No pathologic lymph node enlargement. Urinary bladder: Urinary bladder wall prominence. This can be seen with infection or underdistention. Reproductive: Heterogeneous uterus with prominent periuterine vessels. This can be seen chronically or with infection. There appears to be a hyperdensity within the fundal endometrium on series 4, image 67 for which an endometrial polyp or pathology is not excluded. There is a rim enhancing 3.3 cm 12 Hounsfield unit cystic structure in the right ovary. A candidate for the left ovary is on series 6, image 36. It is smaller than the right ovary. The left ovary contains a small 1 cm cystic structure. Bones/joints: Scoliosis. Soft tissues: Unremarkable. IMPRESSION: 1. No hydronephrosis. No renal or ureteral calculi seen. 2. Heterogeneous uterus with prominent periuterine vessels. This can be seen chronically (such as with pelvic congestion syndrome) or with infection. There is also a hyperdensity within the fundal endometrium for which an endometrial polyp or other pathology is not excluded. Rim enhancing cystic structure in the right ovary which is asymmetrically larger than the left. Ultrasound recommended for further evaluation of these findings. If there is clinical concern for torsion, given the ovarian asymmetry, it is recommended that the ultrasound be performed with Doppler analysis. 3. Urinary bladder wall prominence. This can be seen with infection or underdistention. 4. Small to moderate amount of free fluid in the pelvis. Findings suggesting a component of constipation. Other findings/details as above. THIS REPORT CONTAINS FINDINGS THAT MAY BE CRITICAL TO PATIENT CARE. The findings were verbally communicated via telephone conference with JOSE ANGEL CONTRERAS at 9:14 PM EDT on 06/23/2020. The findings were acknowledged and understood. Dictated and Authenticated by: Huma Mendoza MD. Ordering:MARCEL Kidd MD
[2020-06-23 22:05] VITALS: BP 128/86; PULSE 99; RESP 14; TEMP 37.5; O2SAT 99
--- NOTE | 2020-06-23 22:29 | NUR.NOTE ---
Nursing Note: referal sent to ob 06/23/20
[2020-06-25 14:39] LABS: Chlamydia Result Negative (Negative); GC Result Negative (Negative)
== END 2020-06-23 22:20 | disposition home or self-care (01) ==
PROVIDERS: Emergency Provider Student in an Organized Health Care Education/Training Program; PCP Nurse Practitioner
DX: N76.0 Acute vaginitis (principal); B96.89 Other specified bacterial agents as the cause of diseases classified elsewhere; R10.2 Pelvic and perineal pain; N83.201 Unspecified ovarian cyst, right side; N93.9 Abnormal uterine and vaginal bleeding, unspecified; R93.5 Abnormal findings on diagnostic imaging of other abdominal regions, including retroperitoneum
CPT/HCPCS: 36415; 80053; 81025; 87491; 87591; 96361; 96374; 99285; 74177; 81003; 81015; 85025; 87480; 87510; 87660; J1885; J3490

== ENCOUNTER 2020-06-27 10:11 | Outpatient (CLI) | payer SELFPAY ==
--- NOTE | 2020-06-27 10:00 | DI.US_ITS ---
EXAM: US PELVIS TRANSVAGINAL CLINICAL HISTORY: Ovarian cyst follow bup, right side, N83.201 TECHNIQUE: Transabdominal and transvaginal imaging was performed using standard protocol. COMPARISON: US US PELVIS TRANSVAGINAL from 03/17/[address] ABDOMEN PELVIS W from 06/23/2020 FINDINGS: UTERUS: Anteverted. 6.9 x 4.0 x 4.5 cm Endometrium: 5 millimeter in homogeneous area within the endometrium could represent a small polyp ve rsus submucosal fibroid. Myometrium: A 5 millimeter myometrial fibroid is noted posteriorly. There are again noted to be prominent vessels around the uterus, left greater than right. Cervix: Unremarkable. OVARIES: Right: Cyst or mass: 3.8 centimeter cyst with mild amount of hemorrhage or debris. The left ovary is unremarkable. Left: Cyst or mass: None. DOPPLER: Color: Symmetric and uniform flow to both ovaries. No hyperemia. Duplex: Normal ovarian arterial waveforms visualized. CUL-DE-SAC: Free fluid: There is a small amount of fluid or adjacent to the right ovary. IMPRESSION: 1. Question of 5 millimeter endometrial polyp.. 2. 3.8 centimeter hemorrhagic versus proteinaceous right ovarian cyst. DATA REPOSITORY:
== END 2020-06-27 10:31 ==
PROVIDERS: PCP Nurse Practitioner; Visit Provider Obstetrics & Gynecology
DX: N83.201 Unspecified ovarian cyst, right side (principal); R93.89 Abnormal findings on diagnostic imaging of other specified body structures
CPT/HCPCS: 76830; 76856

== ENCOUNTER 2020-06-27 14:43 | Outpatient (CLI) | payer SELFPAY ==
[2020-06-27 15:01] LABS: Abs Immature Grans 0.03 10^3/uL (0.0-0.06); Absolute Basophil Count 0.02 10^3/uL (0.0-0.2); Absolute Eosinophil Count 0.02 10^3/uL (0.0-0.7); Absolute Lymphocyte Count 2.11 10^3/uL (1.2-3.4); Absolute Monocyte Count 0.45 10^3/uL (0.1-0.8); Absolute Neutrophil Count 6.23 10^3/uL (1.2-6.7); Basophils % 0.2; Eosinophils % 0.2; HCT 38.4 % (36.0-46.0); HGB 13.2 g/dL (11.2-15.7); Immature Grans % 0.3; Lymphocytes % 23.8; MCH 29.6 pg (27.0-33.0); MCHC 34.4 % (32.0-36.0); MCV 86.1 fL (80-95); MPV 9.7 fL (8.0-11.0); Monocytes % 5.1; Neutrophils % 70.4; Nucleated RBC 0 %; Platelet Count 251 10^3/uL (130-400); RBC 4.46 10^6/uL (3.93-5.22); RDW 12.1 % (11.7-14.6); WBC 8.86 10^3/uL (4.4-10.8)
== END 2020-06-27 15:03 ==
PROVIDERS: PCP Nurse Practitioner; Visit Provider Obstetrics & Gynecology
DX: N83.291 Other ovarian cyst, right side (principal)
CPT/HCPCS: 36415; 85025

== ENCOUNTER 2020-06-27 16:43 | Outpatient (REF) | payer SELFPAY ==
--- NOTE | 2020-06-27 13:15 | PAPFT_PTH ---
PATIENT: Klaus Bond LOC: [facility] U#:[id number] AGE/SX: 30/F ROOM: RE06/27/[address]: Gume Perkins MD : 1990 BED: DIS: 06/27/2020 SPEC #: [id number] RECD: 06/27/20 17:32 STATUS: YUE REAkash #: [id number] SERGE: 06/27/20 13:[address]: Gume Perkins DEPT: [facility] Cytology RECD BY: Vicky Estrada ENTERED: 06/27/20 17:32 SP TYPE: PAPFT OTHR DR: Adrianna Jimenez APRN Tissues: 1 - CX/ENDOCX FOR PAP SMEARS Procedures: PAP THIN PREP/UVM Screening Comments: [id number] (CHLAMYDIA/GC)
[2020-06-28 15:23] LABS: Chlamydia Result Negative (Negative); GC Result Negative (Negative)
== END 2020-06-27 17:03 ==
LOC: LBN 16:43
PROVIDERS: PCP Nurse Practitioner; Visit Provider Obstetrics & Gynecology
DX: Z12.4 Encounter for screening for malignant neoplasm of cervix (principal); Z11.3 Encounter for screening for infections with a predominantly sexual mode of transmission
CPT/HCPCS: 87491; 87591; 88142

== ENCOUNTER 2020-07-12 18:16 | Emergency (ER) | payer SELFPAY ==
[2020-07-12 18:29] VITALS: BP 135/85; PULSE 108; TEMP 36.6; O2SAT 135
[2020-07-12 19:53] LABS: Abs Immature Grans 0.03 10^3/uL (0.0-0.06); Absolute Lymphocyte Count 3.38 10^3/uL (1.2-3.4); Absolute Monocyte Count 0.47 10^3/uL (0.1-0.8); Basophils % 0.2; Eosinophils % 0.2; HCT 42.5 % (36.0-46.0); HGB 14.4 g/dL (11.2-15.7); Immature Grans % 0.2; Lymphocytes % 28.1; MCH 29.2 pg (27.0-33.0); MCHC 33.9 % (32.0-36.0); MCV 86.2 fL (80-95); Monocytes % 3.9; Neutrophils % 67.4; Nucleated RBC 0 %; Platelet Count 273 10^3/uL (130-400); RBC 4.93 10^6/uL (3.93-5.22); RDW 11.9 % (11.7-14.6); RDW-SD 37.2 fL; WBC 12.03 10^3/uL (4.4-10.8)
[2020-07-12 19:56] LABS: Absolute Basophil Count 0.02 10^3/uL (0.0-0.2); Absolute Eosinophil Count 0.02 10^3/uL (0.0-0.7); Absolute Neutrophil Count 8.11 10^3/uL (1.2-6.7)
--- NOTE | 2020-07-12 20:10 | W.ED.GENAD ---
Discharge Plan Disposition Patient Disposition: AGAINST MEDICAL ADVICE Discharge Details Clinical Impression: Rectal bleeding Primary Care Provider: Adrianna Jimenez ED Provider: Vik Glover Home Meds and New Rx's Prescriptions: Continued tretinoin [Retin-A] 0.1 % cream 1 applic TP QHS Qty: 20 RF: 6 spironolactone 100 mg tablet 150 mg PO DAILY Qty: 135 RF: 0 doxycycline monohydrate 100 mg capsule 100 mg PO BID RF: 0 metronidazole 500 mg tablet 500 mg PO BID Qty: 20 RF: 0 ferrous sulfate [Iron (ferrous sulfate)] 325 mg (65 mg iron) Tablet 325 mg PO DAILY RF: 0 Discharge Instructions Instructions: Rectal Bleeding (ED), Against Medical Advice (ED) Additional Instructions: You are leaving against medical advice. Please follow up with your primary care physician and general surgery. Return to the emergency department at any time for further work-up and treatment. Referrals: Lea Islas DO [OSTEOPATHIC DOCTOR] - Adrianna Jimenez, RICARDO [Primary Care Provider] - Medical Decision Making 30-year-old female with history of ovarian cyst, questionable history of Crohn's colitis, presents with bright red blood per rectum and waxing waning abdominal discomfort the past couple weeks. Patient has diffuse abdominal tenderness with no peritoneal findings. CT of the abdomen pelvis to assess for acute surgical pathology was interpreted by radiology: Endometrial thickening versus fluid attenuation with some debris. If not already obtained, hCG correlation is recommended. Suspect right ovarian cyst. Labs reviewed: Urine test negative. Hemoglobin normal. Platelets normal. LFTs normal. Called and spoke with on-call general surgeon, Dr. Islas, discussed ED presentation and course including diagnostics. She will admit the patient. 22:17 --patient wishes to leave against medical advise. I had a discussion with the patient about my diagnostic/treatment plan. She declines plan and wishes to leave against medical advise. I reiterated my concerns to the patient and explained the risks of leaving prior to completion of workup and treatment. I specifically emphasized the possibility of life-threatening or lifestyle modifying disease that would not be appropriately treated if they leave. Patient verbalized understanding of my concerns and the potential for life threatening or lifestyle modifying disease. Patient has capacity to make informed decision. I again explained my concerns and urged the patient to stay for treatment as outlined. Patient continued to refuse. I then discussed potential less ideal alternatives to diagnostic/treatment plan as outlines and patient refused. I recommended that the patient follow-up with general surgery or GI DAVID or return to the Emergency Department at any time for further treatment. I will ask that care management assist in arranging insurance and help with follow-up. Lab Data Lab results reviewed: Yes I reviewed the patient's lab results. Labs: Laboratory Tests Range/Units 07/12/20 07/12/20 07/12/20 19:45 19:45 20:55 WBC (4.4-10.8) 10^3/uL 12.03 H RBC (3.93-5.22) 10^6/uL 4.93 Hgb (11.2-15.7) g/dL 14.4 Hct (36.0-46.0) % 42.5 MCV (80-95) fL 86.2 MCH (27.0-33.0) pg 29.2 MCHC (32.0-36.0) % 33.9 RDW (11.7-14.6) % 11.9 Plt Count (130-400) 10^3/uL 273 MPV (8.0-11.0) fL 10.0 Immature Gran % 0.2 Neutrophils % 67.4 Lymphocytes % 28.1 Monocytes % 3.9 Eosinophils % 0.2 Basophils % 0.2 Nucleated RBC % % 0 Absolute Neutrophils (1.2-6.7) 10^3/uL 8.11 H Absolute Lymphocytes (1.2-3.4) 10^3/uL 3.38 Absolute Monocytes (0.1-0.8) 10^3/uL 0.47 Absolute Eosinophils (0.0-0.7) 10^3/uL 0.02 Absolute Basophils (0.0-0.2) 10^3/uL 0.02 Sodium (136-145) mmol/L 136 Potassium (3.5-5.1) mmol/L 3.7 Chloride (98-107) mmol/L 102 Carbon Dioxide (21.0-32.0) mmol/L 23.3 Anion Gap (3-11) mmol/L 10.7 BUN (7-18) mg/dL 12 Creatinine (0.55-1.02) mg/dL 0.69 Estimated GFR/1.73 m2 (mL/min/1.73m2) >= 60.00 Glucose (74-106) mg/dL 92 Calcium (8.5-10.1) mg/dL 8.7 Total Bilirubin (0.2-1.0) mg/dL 0.3 AST (15-37) U/L 19 ALT (14-59) U/L 16 Alkaline Phosphatase (46-116) U/L 45 L Total Protein (6.4-8.2) g/dL 6.5 Albumin (3.4-5.0) g/dL 3.7 Patient ABO/Rh A Negative Antibody Screen Negative HPI General Mode of arrival: ambulatory. Date/Time Provider Initiated Documentation: 07/12/20 18:33. Limitations to Documentation: no limitations. Information obtained by: patient. HPI Narrative: 30-year-old female with recent history of ovarian cyst and abnormal vaginal bleeding, presents with chief complaint of rectal bleeding. Patient notes earlier this afternoon she had an episode of bright red blood per rectum while she was having a bowel movement. Bleeding was described as heavy. No modifiers. Patient notes she is since had some loose stool with no rectal bleeding. Patient states she has had diffuse abdominal discomfort described as persistent waxing and waning with severity of 4 out of 10 to 7 out of 10 over the past couple weeks. She states she was seen here in the emerge department a few weeks ago for lower abdominal cramping and vaginal spotting and found to have an ovarian cyst. She did follow-up with gynecology. Vaginal bleeding has stopped. Patient also notes recent heavy nosebleed. She does not typically get nosebleeds. Patient states remotely she had colitis and was told that she might have Crohn's colitis after colonoscopy. She is not currently on any treatment for Crohn's disease. Patient denies trauma or rectal penetration. Related Data Home Medications Medication Instructions Recorded Confirmed tretinoin 0.1 % topical cream 1 applic TP QHS #20 gm 04/24/20 07/12/20 spironolactone 100 mg tablet 150 mg PO DAILY #135 tab 05/03/20 07/12/20 doxycycline monohydrate 100 mg 100 mg PO BID 05/25/20 07/12/20 capsule metronidazole 500 mg PO BID #20 tab 06/23/20 07/03/20 ferrous sulfate [Iron (ferrous 325 mg PO DAILY 07/12/20 07/12/20 sulfate)] Previous Rx's Medication Instructions Recorded tretinoin 0.1 % topical cream 1 applic TP QHS #20 gm 04/24/20 spironolactone 100 mg tablet 150 mg PO DAILY #135 tab 05/03/20 metronidazole 500 mg PO BID #20 tab 06/23/20 Allergies Allergy/AdvReac Type Severity Reaction Status Date / Time gluten AdvReac Mild Abdomen Verified 07/12/20 18:34 Bloating lactose AdvReac Mild Abdomen Verified 07/12/20 18:34 bloating General Stated Complaint: GI Bleed KAMALJIT: 3 Review of Systems All systems reviewed & are unremarkable except as noted in HPI and below Constitutional Constitutional: Denies fever(s) Gastrointestinal Gastrointestinal: Reports abdominal pain, Denies melena, Reports hematochezia, Reports cramping, Denies dyspepsia, Denies heartburn, Reports loose stools and Denies vomiting Genitourinary Genitourinary: Reports as per HPI COUNT INCLUDES THE [facility] Medical History (Updated 07/12/20 @ 22:20 by Vik Glover MD) ADD (attention deficit disorder) Depression (08/04/16) Irregular menstrual cycle Rectal bleeding Surgical History Endoscopy Tonsillectomy wisdom teeth extraction Family History Mother Breast cancer 52yo; dx'ed late 30s Father Depression Mental disorder Grandfather Diabetes Essential hypertension Heart disease Hyperlipidemia Grandfather Diabetes Essential hypertension Hyperlipidemia Grandmother No problems noted. Grandmother No problems noted. 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 Sexually active: Yes Do you think of yourself as: lesbian/valenzuela/homosexual Current gender identity: female What type of physical activity do you participate in: irregular exercise Frequency: other Details: active w/kids at work Do you feel safe at home: Yes Do you feel safe in your relationship?: Yes Female Reproductive History Menstrual Age of Menarche: 13 control method: progestin IUCD History History 2 Para Hx # Term Pregnancies Multiple births Hx # Pregnancies Ectopic pregnancies AB induced Hx Number of Living Children AB spontaneous 2 Exam Const General: cooperative and no acute distress HENMT Mouth: moist mucous membranes Eyes Conjunctivae: normal conjunctivae Sclera: normal sclerae Neck Neck: trachea midline and supple Resp Auscultation: clear to auscultation bilaterally, no rales, no rhonchi and no wheezes Cardio Rate: regular rate and not tachycardic Rhythm: regular rhythm GI Palpation: soft, not firm, no guarding, no masses, not rigid and tender (Diffuse) with no rebound tenderness Auscultation: normal bowel sounds Skin General skin exam: no rashes or lesions noted Neuro General: patient alert, patient awake and tone normal Extrem General: no edema Psych Appearance: grossly normal Mental Status: mental status grossly normal Course Vital Signs Vital signs: Vital Signs Temperature 36.6 C 07/12/20 18:29 Pulse 108 H 07/12/20 18:29 Blood Pressure 135/85 07/12/20 18:29 Pulse Oximetry 135 H 07/12/20 18:29 Temperature 36.6 C 07/12/20 18:29 Temperature Source Temporal Artery Scan 07/12/20 18:29 Pulse 108 H 07/12/20 18:29 Respiratory Effort Non-Labored 07/12/20 18:32 Blood Pressure 135/85 07/12/20 18:29 Blood Pressure Position Sitting 07/12/20 18:29 Pulse Oximetry 135 H 07/12/20 18:29 Oxygen Delivery Method Room Air 07/12/20 18:29 Oxygen Flow Rate 0 07/12/20 18:29 Pain Level 4 07/12/20 18:29 Lab/Test Results Lab/Test Results: Laboratory Tests Range/Units 07/12/20 19:45 WBC (4.4-10.8) 10^3/uL 12.03 H RBC (3.93-5.22) 10^6/uL 4.93 Hgb (11.2-15.7) g/dL 14.4 Hct (36.0-46.0) % 42.5 MCV (80-95) fL 86.2 MCH (27.0-33.0) pg 29.2 MCHC (32.0-36.0) % 33.9 RDW (11.7-14.6) % 11.9 Plt Count (130-400) 10^3/uL 273 MPV (8.0-11.0) fL 10.0 Immature Gran % 0.2 Neutrophils % 67.4 Lymphocytes % 28.1 Monocytes % 3.9 Eosinophils % 0.2 Basophils % 0.2 Nucleated RBC % % 0 Absolute Neutrophils (1.2-6.7) 10^3/uL 8.11 H Absolute Lymphocytes (1.2-3.4) 10^3/uL 3.38 Absolute Monocytes (0.1-0.8) 10^3/uL 0.47 Absolute Eosinophils (0.0-0.7) 10^3/uL 0.02 Absolute Basophils (0.0-0.2) 10^3/uL 0.02 POC- Test(urine) Negative
--- NOTE | 2020-07-12 20:19 | DI.CT_ITS ---
EXAM: CT ABDOMEN PELVIS W CLINICAL HISTORY: abdominal pain diffuse, rectal bleeding TECHNIQUE: Imaging Protocol: Axial computed tomography images with coronal and sagittal reformatted images were created and reviewed CONTRAST MATERIAL: Intravenous: Omnipaque 350 Contrast volume:100 mL Oral: No COMPARISON: CT CT ABDOMEN PELVIS W from 06/23/2020 FINDINGS: ABDOMEN: Lung Bases: Normal where visualized. Liver: Normal density. No measurable mass. Portal, Superior Mesenteric, and Splenic Veins: Unremarkable. Gallbladder and Biliary Tract: No radiodense calculus or dilation. Pancreas: Normal density, no abnormal calcifications or inflammatory process. Spleen: Normal. Adrenals: No masses seen. Kidneys: Normal size, contour and axis on the left. Ptotic right-sided kidney. No radiodense stones or obstructive uropathy. No masses seen. Abdominal Aorta: Abdominal portion non-dilated. Bowel: No obstruction or bowel wall thickening. No evidence of acute appendicitis. Peritoneal Cavity: No ascites, collection or mesenteric inflammatory response. Lymph Nodes: Within normal limits. Bones: Unremarkable. Soft Tissues: Unremarkable. PELVIS: Bladder: Symmetric distention, no gross wall thickening. Reproductive Organs: 2.7 cm right ovarian cyst. Productive organs are otherwise unremarkable. Uncha nged increase vascularity around the uterus which may reflect pelvic congestion syndrome. Endometria l thickening versus endometrial fluid. Lymph Nodes: Within normal limits. Bones: Within normal limits. IMPRESSION: 1. Endometrial thickening versus endometrial fluid. Ultrasound may be considered for further evaluat ion. 2. 2.7 cm right ovarian cyst. RADIATION DOSE DELIVERED: 603.03mGy.cm Total DLP DATA REPOSITORY: All CT scans at this facility are submitted to the National Radiology Data Registry (NRDR) Dose Index Registry (DIR) with the [employer] (ACR). RADIATION OPTIMIZATION: All CT scans at this facility use at least one of these dose optimization te chniques: automated exposure control; mA and/or kV adjustment per patient size (includes targeted exa ms where dose is matched to clinical indication); or iterative reconstruction.
[2020-07-12] MEDS: Normal Saline Flush 10 ML SYR IVP (20:22)
[2020-07-12] MEDS: Normal Saline - Diluent 50 ML VIAL IV (20:29)
[2020-07-12] MEDS: Omnipaque 350 MG/ML 100 ML BTL IJ (20:29)
--- NOTE | 2020-07-12 20:48 | DI.VRAD_ITS ---
PROCEDURE INFORMATION: Exam: CT Abdomen And Pelvis With Contrast Exam date and time: 07/12/2020 8:20 PM Age: 30 years old Clinical indication: Abdominal pain; Localized; Lower TECHNIQUE: Imaging protocol: Computed tomography of the abdomen and pelvis with intravenous contrast. Radiation optimization: All CT scans at this facility use at least one of these dose optimization techniques: automated exposure control; mA and/or kV adjustment per patient size (includes targeted exams where dose is matched to clinical indication); or iterative reconstruction. Contrast material: [id number]; Contrast volume: 100 ml; Contrast route: INTRAVENOUS (IV); COMPARISON: CT ABDOMEN PELVIS W 06/23/2020 8:28 PM FINDINGS: Liver: Normal. No mass. Gallbladder and bile ducts: Normal. No calcified stones. No ductal dilation. Pancreas: Normal. No ductal dilation. Spleen: Normal. No splenomegaly. Adrenals: Normal. No mass. Kidneys and ureters: Right-sided ptotic kidney again noted, anatomic variant. Stomach and bowel: The cecum is low lying, anatomic variant. Appendix: The appendix is not definitely identified. Intraperitoneal space: Unremarkable. No free air. No significant fluid collection. Vasculature: Previously seen prominent periuterine vessels are again noted, unchanged. Lymph nodes: Unremarkable. No enlarged lymph nodes. Urinary bladder: Unremarkable as visualized. Reproductive: There is some fluid attenuation at the endometrial space with some debris. Clinical and laboratory correlation requested. There is a low-density right adnexal lesion, nearly 3 cm. Suspect ovarian cyst. Bones/joints: Unremarkable. No acute fracture. Soft tissues: Unremarkable. IMPRESSION: Endometrial thickening versus fluid attenuation with some debris. If not already obtained, hCG correlation is recommended. Suspect right ovarian cyst. Dictated and Authenticated by: Lety Messina MD. Ordering:RICK Chery MD
[2020-07-12 21:09] VITALS: BP 117/65; PULSE 86; RESP 16; O2SAT 99
[2020-07-12 21:13] LABS: ALT 16 U/L (14-59); AST 19 U/L (15-37); Albumin 3.7 g/dL (3.4-5.0); Alkaline Phosphatase 45 U/L (46-116); Anion Gap 10.7 mmol/L (3-11); BUN 12 mg/dL (7-18); Bilirubin, Total 0.3 mg/dL (0.2-1.0); CO2 23.3 mmol/L (21.0-32.0); CREATININE 0.69 mg/dL (0.55-1.02); Calcium 8.7 mg/dL (8.5-10.1); Chloride 102 mmol/L (98-107); Glucose 92 mg/dL (74-106); Potassium 3.7 mmol/L (3.5-5.1); Sodium 136 mmol/L (136-145); Total Protein 6.5 g/dL (6.4-8.2)
[2020-07-12 21:43] LABS: PTT Activated 26.3 sec (21.0-31.4); Prothrombin Time 10.4 sec (9.3-11.0)
--- NOTE | 2020-07-12 21:56 | W.PM.HP.N ---
Date of service: 07/12/20 Time of Service: 21:56 Assessment and Plan Assessment and plan (1) Rectal bleeding: Status: Acute Assessment and plan: admit for obs anoscopy in am check p-ANCA and lupus/ fibrinogen/d dimer/tsh/ peripheral smear. if any of these abnl- hem consult consider CE in futre for poss crphn's work-up nursing obs _pt left AMA and I did note see her History of Present Illness Consults Consult date: 07/12/20 Requesting physician: Vik Glover Narrative: Pt admitted for obs w/ rectal bleeding. This happened last month. No etiology foundd. They had done a CT and found an ovararian cyst. She saw ob (per OB):Hemorrhage of corpus luteum cyst: The patient was reassured that most likely her pain will completely resolve on its own. Despite the fact that the cyst was on the right side and her pain was predominantly on her left it is likely still related to the ovarian cyst. I would not recommend any specific intervention at this point I do not feel that she requires any further imaging. She may follow-up with us as needed. (2) Family history of breast cancer: The patient does have an upcoming appointment in August with the familial cancer program at [facility]. She has had a CE in the past and carries a Dg of Crohns. CT was nl CRP- pd. She is not on any meds for Crhon's. She had a CE done in ID in the past. Normal CT on 06/23 and 07/12. hgb was 13.2 on 06/27. Hgb is 14.4 today. no vomting or clnical dehydration- per ED Mildly elevated WBC today. No fevers. [facility] Medical History (Updated 07/24/20 @ 00:02 by DANIE ALLEN) ADD (attention deficit disorder) Depression (08/04/16) Irregular menstrual cycle Rectal bleeding Surgical History Endoscopy Tonsillectomy wisdom teeth extraction Family History Mother Breast cancer 52yo; dx'ed late 30s Father Depression Mental disorder Grandfather Diabetes Essential hypertension Heart disease Hyperlipidemia Grandfather Diabetes Essential hypertension Hyperlipidemia Grandmother No problems noted. Grandmother No problems noted. 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 Sexually active: Yes Do you think of yourself as: lesbian/valenzuela/homosexual Current gender identity: female What type of physical activity do you participate in: irregular exercise Frequency: other Details: active w/kids at work Do you feel safe at home: Yes Do you feel safe in your relationship?: Yes Female Reproductive History Menstrual Age of Menarche: 13 control method: progestin IUCD History History 2 Para Hx # Term Pregnancies Multiple births Hx # Pregnancies Ectopic pregnancies AB induced Hx Number of Living Children AB spontaneous 2 Meds Home Medications and Allergies Home Medications Medication Instructions Recorded Confirmed Type tretinoin 0.1 % topical cream 1 applic TP QHS #20 gm 04/24/20 07/24/20 Rx doxycycline monohydrate 100 mg 100 mg PO BID 05/25/20 07/24/20 History capsule ferrous sulfate [Iron (ferrous 325 mg PO DAILY 07/12/20 07/24/20 History sulfate)] drospirenone 3 mg-ethinyl 1 tab PO DAILY #84 tab 07/24/20 07/24/20 Rx estradiol 0.02 mg tablet Allergies Allergy/AdvReac Type Severity Reaction Status Date / Time gluten AdvReac Mild Abdomen Verified 07/24/20 10:38 Bloating lactose AdvReac Mild Abdomen Verified 07/24/20 10:38 bloating Results Labs Result diagrams: 07/12/20 19:45 07/12/20 20:55 Labs: Laboratory Results - last 24 hr 07/12/20 07/12/20 07/12/20 19:45 19:45 19:45 WBC 12.03 H RBC 4.93 Hgb 14.4 Hct 42.5 MCV 86.2 MCH 29.2 MCHC 33.9 RDW 11.9 Plt Count 273 MPV 10.0 Immature Gran % 0.2 Neutrophils % 67.4 Lymphocytes % 28.1 Monocytes % 3.9 Eosinophils % 0.2 Basophils % 0.2 Nucleated RBC % 0 Absolute Neutrophils 8.11 H Absolute Lymphocytes 3.38 Absolute Monocytes 0.47 Absolute Eosinophils 0.02 Absolute Basophils 0.02 PT 10.4 INR 1.0 APTT 26.3 Sodium Potassium Chloride Carbon Dioxide Anion Gap BUN Creatinine Estimated GFR/1.73 m2 Glucose Calcium Total Bilirubin AST ALT Alkaline Phosphatase Total Protein Albumin Patient ABO/Rh A Negative Antibody Screen Negative 07/12/20 07/12/20 20:55 21:25 WBC RBC Hgb Hct MCV MCH MCHC RDW Plt Count MPV Immature Gran % Neutrophils % Lymphocytes % Monocytes % Eosinophils % Basophils % Nucleated RBC % Absolute Neutrophils Absolute Lymphocytes Absolute Monocytes Absolute Eosinophils Absolute Basophils PT Cancelled INR Cancelled APTT Sodium 136 Potassium 3.7 Chloride 102 Carbon Dioxide 23.3 Anion Gap 10.7 BUN 12 Creatinine 0.69 Estimated GFR/1.73 m2 >= 60.00 Glucose 92 Calcium 8.7 Total Bilirubin 0.3 AST 19 ALT 16 Alkaline Phosphatase 45 L Total Protein 6.5 Albumin 3.7 Patient ABO/Rh Antibody Screen Last Vital Signs Temp 36.6 C 07/12/20 18:29 Pulse 86 07/12/20 21:09 Resp 16 07/12/20 21:09 BP 117/65 07/12/20 21:09 Pulse Ox 99 07/12/20 21:09 COVID-19 Screening Have you,or household,traveled outside [place] in last 14 days?: No Had IN PERSON contact w/suspected or confirmed C-19 person: No
[2020-07-12 22:13] LABS: C-Reactive Protein < 0.05 mg/dL (0.0-0.3)
[2020-07-12 22:19] LABS: GGT 15 U/L (5-55)
[2020-07-12 22:30] VITALS: BP 120/74; PULSE 86; RESP 18; TEMP 36.7; O2SAT 98
--- NOTE | 2020-07-12 22:42 | NUR.NOTE ---
refferal to for insurance and follow up with General Surgery faxed. Deirdre ED Nursing Note:
[2020-07-12 22:45] LABS: D-Dimer 147 ng/mlFEU (<500)
[2020-07-13 12:07] LABS: COVID-19 RT-PCR UVMMC Result Negative (Negative)
--- NOTE | 2020-07-13 14:13 | CMPROGNOTE_ITS ---
- If Service Date Differs Date of service: 07/13/20 Time of Service: 14:14 Care Management Progress Note Klaus is seen in the ED on 07/12/20 for rectal bleeding. Due to a lack of health insurance and financial concerns, Klaus declines treatment and leaves against medical advice. CM outreaches to Klaus by telephone and discusses with her the services offered by [facility] and [facility]'s patient assistance. CM coordinates a referral to [facility] to enlist their help in exploring insurance options with Klaus. A Patient Assistance Application is also mailed to her. Lastly, she is provided with contact information for both [facility] and for in case she has any questions. HAMILTON will follow up with her next week.
--- NOTE | 2020-07-14 09:21 | NUR.NOTE ---
Nursing Note: Negative COVID result given to pt after identity confirmed at 0922.
[2020-07-14 15:25] LABS: c-ANCA Negative (Negative); p-ANCA Negative (Negative)
== END 2020-07-12 22:30 | disposition left against medical advice (07) ==
PROVIDERS: Surgery; Emergency Provider Student in an Organized Health Care Education/Training Program; PCP Nurse Practitioner
DX: K62.5 Hemorrhage of anus and rectum (principal); R10.84 Generalized abdominal pain; Z53.29 Procedure and treatment not carried out because of patient's decision for other reasons; Z03.818 Encounter for observation for suspected exposure to other biological agents ruled out
CPT/HCPCS: 36415; 80053; 81025; 86255; 86850; 86900; 86901; 87116; 99285; NC; U0003; 74177; 82977; 83516; 85025; 85379; 85610; 85730; 86140; 99284; J3490

== ENCOUNTER 2020-07-20 08:12 | Outpatient (CLI) | payer SELFPAY ==
[2020-07-23 13:26] LABS: IgA 172 mg/dL (85-499); Interpretation (See Note); Tissue Transglutaminase IgA <1.2 U/mL (<4.0)
== END 2020-07-20 08:32 ==
PROVIDERS: PCP Nurse Practitioner; Visit Provider Surgery
DX: R10.9 Unspecified abdominal pain (principal)
CPT/HCPCS: 36415; 82784; 83516

== ENCOUNTER 2020-08-27 02:54 | Outpatient (CLI) | payer SELFPAY ==
[2020-08-29 11:54] LABS: Patient Race White; SARS-CoV-2 RNA Undetected (Undetected); SARS-CoV-2 Specimen Source Nasal
== END 2020-08-27 03:14 ==
PROVIDERS: PCP Nurse Practitioner; Visit Provider Nurse Practitioner
DX: Z11.59 Encounter for screening for other viral diseases (principal)
CPT/HCPCS: U0003

== ENCOUNTER 2020-12-13 02:45 | Outpatient (CLI) | payer SELFPAY ==
[2020-12-13 09:56] LABS: HCT 40.7 % (36.0-46.0); HGB 14.3 g/dL (11.2-15.7); MCH 29.5 pg (27.0-33.0); MCHC 35.1 % (32.0-36.0); MCV 83.9 fL (80-95); MPV 9.7 fL (8.0-11.0); Platelet Count 253 10^3/uL (130-400); RBC 4.85 10^6/uL (3.93-5.22); RDW 11.7 % (11.7-14.6); RDW-SD 35.5 fL; WBC 8.36 10^3/uL (4.4-10.8)
[2020-12-13 10:53] LABS: Anion Gap 7.7 mmol/L (3-11); BUN 8 mg/dL (7-18); CO2 27.3 mmol/L (21.0-32.0); CREATININE 0.8 mg/dL (0.55-1.02); Calcium 9.4 mg/dL (8.5-10.1); Chloride 102 mmol/L (98-107); Glucose 92 mg/dL (74-106); Potassium 3.9 mmol/L (3.5-5.1); Sodium 137 mmol/L (136-145); TSH (W/Ref FT4) 1.08 uIU/mL (0.36-3.74)
[2020-12-13 10:55] LABS: C-Reactive Protein < 0.05 mg/dL (0.0-0.3)
[2020-12-13 16:38] LABS: ESR 2 mm/hr (<or=20)
[2020-12-16 15:22] LABS: ANA Interpretation Negative (Negative)
== END 2020-12-13 02:46 | disposition home or self-care (01) ==
LOC: LBO 02:45
PROVIDERS: PCP Nurse Practitioner; Visit Provider Nurse Practitioner
DX: I10 Essential (primary) hypertension (principal); R53.83 Other fatigue; M25.59 Pain in other specified joint; R20.9 Unspecified disturbances of skin sensation
CPT/HCPCS: 36415; 80048; 85027; 85652; 84443; 86038; 86140

== ENCOUNTER 2020-12-14 11:15 | Outpatient (RCR) | payer SELFPAY ==
--- NOTE | 2020-12-14 11:30 | HOLTER_ITS ---
APPROVED REPORT Exam Type: HOLTER MONITOR APPLICATION Reason for Test: Palpitations Patient Location: O Conclusion This is a 48-hour monitor ordered for indication of palpitations. The patient was in normal sinus rhythm for the majority of the recording with an average heart rate o f 91 bpm. There were no episodes of ventricular tachycardia and 2 singular PVCs. There were no episodes of supraventricular tachycardia and 14 total PACs. There were no episodes of atrial fibrillation, no pauses greater than 3 seconds and no evidence of hi gh degree heart block. There were numerous patient triggered events 1 of which was associated with a single PAC but otherwis e all with normal sinus rhythm/sinus tachycardia.
== END 2020-12-26 23:59 | disposition home or self-care (01) ==
LOC: RT 11:15
PROVIDERS: PCP Nurse Practitioner; Visit Provider Nurse Practitioner
DX: R00.2 Palpitations (principal)
CPT/HCPCS: 93225; 93226

== ENCOUNTER 2021-07-05 14:26 | Emergency (ER) | payer OTHER, SELFPAY ==
[2021-07-05 14:32] VITALS: BP 135/89; PULSE 119; RESP 16; TEMP 37; O2SAT 100
[2021-07-05 15:10] LABS: Bilirubin Negative (Negative); Blood Moderate (Negative); Clarity Sl Cloudy (Clear); Glucose Negative (Negative); Ketones Trace mg/dL (Negative); Leukocyte Esterase Trace (Negative); Nitrite Negative (Negative); Specific Gravity >= 1.030 (1.005-1.025); pH 6.5 (5-8)
--- NOTE | 2021-07-05 15:15 | ED.GENADUL_ITS ---
Discharge Plan Disposition Patient Disposition: HOME Condition: Stable Discharge Details Clinical Impression: Pelvic congestion syndrome, Ovarian cyst Primary Care Provider: Adrianna Jimenez ED Provider: Deedee Lemus Home Meds and New Rx's Prescriptions: No Action doxycycline monohydrate 100 mg capsule 100 mg PO DAILY Qty: 90 RF: 0 spironolactone 100 mg tablet 100 mg PO QAM Qty: 90 RF: 3 dextroamphetamine-amphetamine [Adderall XR] 30 mg capsule,extended release 24hr 30 mg PO DAILY MDD 30mg Qty: 30 RF: 0 Discharge Instructions Instructions: Ovarian Cyst (ED), Pelvic Pain in Women (ED) Additional Instructions: The ultrasound showed findings consistent with the pelvic congestion syndrome. There is also a possibility of a right ruptured ovarian cyst. You also do have few left-sided ovarian cyst. Please discuss the ultrasound results with your [employer]/women's wellness provider. Follow up with primary care provider in 3-5 days. Return to ED sooner if any worsening vaginal bleed more than 1 pad an hour, lightheaded, dizziness, fever, vomiting or concerns. Increase oral fluids. Please take Tylenol or Ibuprofen with food every 4-6 hours as needed for pain and swelling. Referrals: Merly Dawson DO [OSTEOPATHIC DOCTOR] - 2 weeks Adrianna Jimenez NP [Primary Care Provider] - Discharge Data Discharge Date/Time-TO BE ENTERED AT DEPARTURE: 07/05/21 17:57 Medical Decision Making <JOSEMANUEL Guzman - Last Filed: 07/07/21 22:34> This is a 31-year-old female with past medical history of ADD, depression, irregular medical cycles, dysfunctional uterine bleeding, ovarian cysts, pelvic congestion syndrome, presenting to the ER with multiple complaints, chronic lower abdominal-pelvic discomfort with abnormal bleeding, worse over the past month, pink-tinged vaginal discharge nausea, vomiting, generalized weakness, concern for dehydration. Patient states that she knows she has polyps on her cervix, had a follow-up appointment with [employer] today for this problem, could not make the appointment so came to the ER instead. Clinically she appears anxious, otherwise no acute distress, abdomen diffuse mild lower discomfort but nonsurgical. Breast exam performed, shows fibrocystic changes but no obvious abnormality. Discussed outpatient mammogram with patient. Given the patient's presentation, offered pelvic exam but patient defers to outpatient women's welln ess. Patient does specifically bring up the concern of cervical cancer given her polyps and I explained to her that she would need to have these biopsied and we would not do that during a pelvic exam here in the ER. I believe this to be reasonable as I do not think a pelvic exam today would change her overall outcome. Will obtain routine medical screening laboratory values, urinalysis, send GC chlamydia from her urine. We will also obtain pelvic ultrasound. Patient is agreeable to this plan and has no additional questions or concerns. We did discuss the importance of outpatient women's wellness follow-up. Patient is receiving 1 L IV fluid. Given her presentation extremely low suspicion for ovarian torsion. She denies foul discharge, fever, low suspicion for PID although again pelvic exam was declined. Initial laboratory values reveal a white blood cell count of 8.95 hemoglobin 15.8 hematocrit 46.9 platelet count 281. Chemistries are pending. Urinalysis reveals trace ketones, moderate blood, trace leukoesterase, 3-5 white cells, 5- 10 red cells, few epithelials, many bacteria, culture indicated. GC and chlamydia pending. Medical Records Medical records reviewed: Yes I reviewed the patient's medical records. Lab Data Lab results reviewed: Yes I reviewed the patient's lab results. Labs: 07/05/21 14:50 Urine - Reflex from Ua Urine Culture - Pending Laboratory Tests Range/Units 07/05/21 07/05/21 14:50 15:29 WBC (4.4-10.8) 10^3/uL 8.95 RBC (3.93-5.22) 10^6/uL 5.37 H Hgb (11.2-15.7) g/dL 15.8 H Hct (36.0-46.0) % 46.9 H MCV (80-95) fL 87.3 MCH (27.0-33.0) pg 29.4 MCHC (32.0-36.0) % 33.7 RDW (11.7-14.6) % 12.4 Plt Count (130-400) 10^3/uL 281 MPV (8.0-11.0) fL 9.4 Immature Gran % 0.2 Neutrophils % 71.0 Lymphocytes % 23.6 Monocytes % 4.4 Eosinophils % 0.6 Basophils % 0.2 Nucleated RBC % % 0 Absolute Neutrophils (1.2-6.7) 10^3/uL 6.36 Absolute Lymphocytes (1.2-3.4) 10^3/uL 2.11 Absolute Monocytes (0.1-0.8) 10^3/uL 0.39 Absolute Eosinophils (0.0-0.7) 10^3/uL 0.05 Absolute Basophils (0.0-0.2) 10^3/uL 0.02 Urine Color (Yellow) Yellow Urine Clarity (Clear) Sl Cloudy Urine pH (5-8) 6.5 Ur Specific Redbird (1.005-1.025) >= 1.030 H Urine Protein (Negative) mg/dL Trace H Urine Ketones (Negative) mg/dL Trace H Urine Blood (Negative) Moderate H Urine Nitrite (Negative) Negative Urine Bilirubin (Negative) Negative Urine Urobilinogen (Up TO 0.2) EU/dL 2.0 H Ur Leukocyte Esterase (Negative) Trace H Urine RBC (0-2) HPF 5-10 H Urine WBC (0-5) HPF 3-5 Ur Epithelial Cells (Negative) HPF Few Urine Crystals (Negative) HPF Negative Urine Bacteria (Negative) HPF Many Urine Casts (Negative) LPF Negative Urine Mucus (Negative) Heavy Urine Other (Negative) Negative Ur Culture Indicated? Yes Urine Glucose (Negative) mg/dL Negative <Deedee Lemus - Last Filed: 07/05/21 19:31> Care assumed from provider (JOSEMANUEL Chow) Please see their initial HPI, PE, and documentation. Discussed patient details and case and pending workup and disposition. At this time patient has been ultrasound result is pending. Labs reviewed. 1638: Spoke with agriculture laboratory technician regarding preliminary ultrasound result bilateral ovarian cyst which patient reports are chronic there is a right ovarian cyst that is ruptured versus hemorrhagic good flow both ovaries this does have some enlarged pelvic veins which are consistent with patient pelvic congestion syndrome. No other acute abnormalities per preliminary report. FINDINGS: Uterus/cervix: Uterus measures 6.4 x 5.2 x 3.6 cm. Endometrium is 8 mm in thickness. Right adnexa: Right ovary measures 3.4 x 1.2 x 2.1 cm. Mildly complex cystic structures are seen. This may represent a hemorrhagic cyst. Left adnexa: Left ovary demonstrates a few cysts that are probably normal for age. Intraperitoneal space: No intraperitoneal fluid. Urinary bladder: Normal. 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 Vasculature: Prominent parametrial vessels noted. IMPRESSION: No acute pathology. Complex cystic structure in the right ovary may represent a resolving hemorrhagic cyst. Differential includes other entities. Thank you for allowing us to participate in the care of your patient. Dictated and Authenticated by: Tejinder Mercedes MD 07/05/2021 5:23 PM Eastern Time ([place] & [place]) Discussed ultrasound results with patient verbalized understanding. All questions were answered to the best my ability. I did encourage her to follow- up with her women's wellness [employer] provider. She does verbalize understanding. She alert oriented hemodynamically stable. HPI <JOSEMANUEL Guzman - Last Filed: 07/07/21 22:34> General Mode of arrival: ambulatory . Date/Time Provider Initiated Documentation: 07/05/21 14:29 . Limitations to Documentation: no limitations . Information obtained by: patient . HPI Narrative: This is a 31-year-old female, past medical history that includes ADD, depression, irregular menstrual cycle, pelvic congestion syndrome, ovulation pain, fibrocystic breast, anxiety, ovarian cyst, dysfunctional uterine bleeding, presenting to the ER today with multiple complaints, primarily concerned of lower abdominal pain and vaginal spotting over the past 2 years intermittently reports that symptoms have been worsening over the past month or so. Patient states that she knows that she has polyps on her cervix and cyst in her ovary, she believes that a cyst ruptured last week. She reports increased stress, now with nausea, decreased appetite, concern for malnutrition and dehydration. Patient states that she was sexually active with 1 female partner up until recently, denies any concern for STD. Patient states that she was scheduled to see [employer] today for the symptoms but could not make her appointment, therefore came to the ER for further evaluation. Patient is hoping that she can have some blood work and ultrasound, she would also like her breast evaluated because she still feels lump although these are not new. Related Data Home Medications Medication Instructions Recorded Confirmed dextroamphetamine-amphetamine ER 30 mg PO DAILY #30 cap MDD 30mg 05/15/21 07/05/21 30 mg 24hr capsule,extend release doxycycline monohydrate 100 mg 100 mg PO DAILY #90 cap 05/15/21 07/05/21 capsule spironolactone 100 mg tablet 100 mg PO QAM #90 tab 05/15/21 07/05/21 Previous Rx's Medication Instructions Recorded dextroamphetamine-amphetamine ER 30 mg PO DAILY #30 cap MDD 30mg 05/15/21 30 mg 24hr capsule,extend release doxycycline monohydrate 100 mg 100 mg PO DAILY #90 cap 05/15/21 capsule spironolactone 100 mg tablet 100 mg PO QAM #90 tab 05/15/21 Allergies Allergy/AdvReac Type Severity Reaction Status Date / Time gluten AdvReac Mild Abdomen Verified 07/05/21 14:42 Bloating lactose AdvReac Mild Abdomen Verified 07/05/21 14:42 bloating General Stated Complaint: [employer] KAMALJIT: 3 Review of Systems <JOSEMANUEL Guzman - Last Filed: 07/07/21 22:34> Constitutional Constitutional: Reports fatigue, Denies fever(s) and Denies weakness ENT Ears, Nose, Mouth, and Throat: Denies neck pain Cardiovascular Cardiovascular: Denies chest pain and Denies dyspnea Respiratory Respiratory: Denies cough and Denies dyspnea Gastrointestinal Gastrointestinal: Reports abdominal pain, Denies constipation, Denies diarrhea, Reports nausea and Denies vomiting Genitourinary Genitourinary: Reports abnormal vaginal bleeding, Denies dysuria and Denies vaginal discharge Musculoskeletal Musculoskeletal: Reports back pain and Denies neck pain Integumentary/Breasts Skin/Breast: Denies rash Neurologic Neurologic: Denies weakness Psychiatric Psychiatric: Reports anxiety Endocrine Endocrine: Reports fatigue PFSH <JOSEMANUEL Guzman - Last Filed: 07/07/21 22:34> Medical History ADD (attention deficit disorder) Depression (08/04/16) Irregular menstrual cycle Rectal bleeding Surgical History Endoscopy Tonsillectomy wisdom teeth extraction Family History Mother Breast cancer 52yo; dx'ed late 30s Father Depression Mental disorder Grandfather Diabetes Essential hypertension Heart disease Hyperlipidemia Grandfather Diabetes Essential hypertension Hyperlipidemia Grandmother No problems noted. Grandmother No problems noted. 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 Sexually active: Yes Do you think of yourself as: lesbian/valenzuela/homosexual Current gender identity: female What type of physical activity do you participate in: irregular exercise Frequency: other Details: active w/kids at work Do you feel safe at home: Yes Do you feel safe in your relationship?: Yes Female Reproductive History Menstrual Age of Menarche: 13 control method: progestin IUCD History History 2 Para Hx # Term Pregnancies Multiple births Hx # Pregnancies Ectopic pregnancies AB induced Hx Number of Living Children AB spontaneous 2 Exam <JOSEMANUEL Guzman - Last Filed: 07/07/21 22:34> Const General: cooperative, healthy appearing, comfortable, no acute distress and anxious Orientation: alert and awake HENMT Head: normal to inspection, normocephalic and atraumatic Face and sinus: normal facial exam Mouth: moist mucous membranes Eyes General: appearance normal, both eyes and all related structures Conjunctivae: conjunctivae normal Neck Neck: normal visual inspection, trachea midline and supple Chest Breast inspection: normal inspection of the breasts and normal inspection of the axillae Breast palpation: normal palpation of the axillae, no axillary lymphadenopathy and abnormal palpation of the breast (Bilateral upper, outer quadrant, fibrocystic changes) Other: Female RN in room for evaluation. Resp Effort & Inspection: normal respiratory effort and able to speak in complete sentences Auscultation: clear to auscultation bilaterally Cardio Rate: regular rate Rhythm: regular rhythm GI Inspection: normal to inspection Palpation: soft, not firm, no guarding, no pulsatile masses and tender (Diffuse, mild lower) with no rebound tenderness Auscultation: normal bowel sounds General: deferred (Patient deferred, will follow up with [employer]) Back/Spine/Pelvis Back: no CVA tenderness and No back tenderness Skin General skin exam: no rashes or lesions noted Neuro General: patient alert, patient awake, moves all extremities and no focal motor deficits Cognition: normal cognition Speech: speech normal Gait: normal gait Sensory Exam: no sensory deficits noted Psych Appearance: grossly normal Mental Status: mental status grossly normal Course <JOSEMANUEL Guzman - Last Filed: 07/07/21 22:34> Vital Signs Vital signs: Vital Signs Temperature 37 C 07/05/21 14:32 Pulse 119 H 07/05/21 14:32 Respiratory Rate 16 07/05/21 14:32 Blood Pressure 135/89 07/05/21 14:32 Pulse Oximetry 100 07/05/21 14:32 Temperature 37 C 07/05/21 14:32 Temperature Source Skin 07/05/21 14:32 Pulse 119 H 07/05/21 14:32 Respiratory Rate 16 07/05/21 14:32 Respiratory Effort Non-Labored 07/05/21 14:32 Blood Pressure 135/89 07/05/21 14:32 Blood Pressure Position Sitting 07/05/21 14:32 Pulse Oximetry 100 07/05/21 14:32 Oxygen Delivery Method Room Air 07/05/21 14:32 Oxygen Flow Rate 0 07/05/21 14:32 Pain Level 5 07/05/21 14:44 Lab/Test Results Lab/Test Results: Laboratory Tests Range/Units 07/05/21 14:50 Urine Color (Yellow) Yellow Urine Clarity (Clear) Sl Cloudy Urine pH (5-8) 6.5 Ur Specific Redbird (1.005-1.025) >= 1.030 H Urine Protein (Negative) mg/dL Trace H Urine Ketones (Negative) mg/dL Trace H Urine Blood (Negative) Moderate H Urine Nitrite (Negative) Negative Urine Bilirubin (Negative) Negative Urine Urobilinogen (Up TO 0.2) EU/dL 2.0 H Ur Leukocyte Esterase (Negative) Trace H Urine Glucose (Negative) mg/dL Negative Sign Out <JOSEMANUEL Guzman - Last Filed: 07/07/21 22:34> Sign Out Data: Sign Out Comment: Chronic lower abdominal-pelvic discomfort, irregular vaginal bleeding, presenting for increasing symptoms over the past month, now associated with nausea, lack of appetite, increased stress. Obtaining medical screening labs, pelvic ultrasound, pelvic exam was deferred, GC chlamydia obtained from urine. Discussed the importance of outpatient woman's wellness health follow-up that she missed today at 8 A.M. Last updated by Enoz Wright PA at 07/05/21 15:52 PAWSS <JOSEMANUEL Guzman - Last Filed: 07/07/21 22:34> Have you Been Recently Intoxicated or Drunk Within the Last 30 days?: No Have you Ever Experienced Previous Episodes of Alcohol Withdrawal?: No Have you ever Experienced Withdrawal Seizures?: No Have you ever Experienced Delirium Tremens(DT)s?: No Have you ever undergone Alcohol Rehabilitation Treatment (i.e, inpt ot outpatient treatment programs)?: No Have you ever Experienced Blackouts?: No Have you ever Combined Alcohol with other Downers within the last 90 days?: No Have you ever Combined Alcohol with any other Substance of Abuse during the last 90 days?: No Positive Blood Alcohol level on Presentation? [PCS.BAL]: No Evidence of Increased Autonomic Activity (i.e. HR>120, tremor, sweating, agitation, nausea)?: No Result: 0
[2021-07-05 15:23] LABS: Bacteria Many HPF (Negative); C & S Indicated? Yes; Casts Negative LPF (Negative); Crystals Negative HPF (Negative); Epithelial Cells Few HPF (Negative); Mucus Heavy (Negative); Other Cells Negative (Negative)
--- NOTE | 2021-07-05 15:30 | DI.US_ITS ---
Exam(s) US PELVIS TRANSVAGINAL EXAM: US PELVIS TRANSVAGINAL CLINICAL HISTORY: Pain, history of ovarian TECHNIQUE: Ultrasound of the pelvis was performed both transabdominal and transvaginal. COMPARISON: CT scan performed 07/12/2020 was reviewed. FINDINGS: UTERUS: Both transabdominal and transvaginal pelvic ultrasound exams reveal nongravid anteverted uter us Measures 6.4 cm length x 5.2 cm AP x 3.6 cm wide. There are no uterine fibroids. Endometrial thickness measures 8 mm. There is no fluid in the endometrial canal. CERVIX: There are no obvious nabothian cysts. RIGHT OVARY: Measures 3.4 x 1.2 x 2.1 cm No significant cysts nor masses evident in the right ovary. Contains a 16 x 13 x 11 millimeter findi ng which is either a hemorrhagic or ruptured ovarian cyst. LEFT OVARY: Measures 3.2 x 3.1 x 1.4 cm Contains follicular cysts. Also a 10 x 8 x 8 millimeter finding which is probably hemorrhagic or com plicated cyst. CUL-DE-SAC: There are prominent veins in both adnexal regions, seen on the prior CT scan, consistent with element of pelvic congestion syndrome There is no free fluid in the cul-de-sac. IMPRESSION: 1. Normal appearing uterus. Endometrial thickness is 8 millimeters. No fluid in the endometrial can al. 2. Multiple follicular cysts are noted in both ovaries. In addition, there are enlarged veins in bot h adnexal regions, as seen on prior CT scan of June 2028 consistent with element of pelvic congest ion syndrome. 3. 16 x 13 x 11 millimeter finding in the right ovary which is either hemorrhagic or ruptured ovarian cyst. Recommend follow-up transvaginal study after appropriate clinical interval to ensure stabilit y or regression of this right ovarian finding. 4. There is no free fluid DATA REPOSITORY:
[2021-07-05 15:33] LABS: Abs Immature Grans 0.02 10^3/uL (0.0-0.06); Absolute Basophil Count 0.02 10^3/uL (0.0-0.2); Absolute Eosinophil Count 0.05 10^3/uL (0.0-0.7); Absolute Lymphocyte Count 2.11 10^3/uL (1.2-3.4); Absolute Monocyte Count 0.39 10^3/uL (0.1-0.8); Absolute Neutrophil Count 6.36 10^3/uL (1.2-6.7); Basophils % 0.2; Eosinophils % 0.6; HCT 46.9 % (36.0-46.0); HGB 15.8 g/dL (11.2-15.7); Immature Grans % 0.2; Lymphocytes % 23.6; MCH 29.4 pg (27.0-33.0); MCHC 33.7 % (32.0-36.0); MCV 87.3 fL (80-95); MPV 9.4 fL (8.0-11.0); Monocytes % 4.4; Nucleated RBC 0 %; Platelet Count 281 10^3/uL (130-400); RBC 5.37 10^6/uL (3.93-5.22); RDW 12.4 % (11.7-14.6); RDW-SD 39.3 fL; WBC 8.95 10^3/uL (4.4-10.8)
[2021-07-05 15:45] LABS: ALT 25 U/L (14-59); AST 18 U/L (15-37); Albumin 5.2 g/dL (3.4-5.0); Alkaline Phosphatase 69 U/L (46-116); Anion Gap 5.7 mmol/L (3-11); BUN 8 mg/dL (7-18); Bilirubin, Total 0.6 mg/dL (0.2-1.0); CO2 30.3 mmol/L (21.0-32.0); CREATININE 0.9 mg/dL (0.55-1.02); Calcium 9.6 mg/dL (8.5-10.1); Chloride 103 mmol/L (98-107); Glucose 88 mg/dL (74-106); Lipase 84 U/L (73-393); Potassium 3.7 mmol/L (3.5-5.1); Sodium 139 mmol/L (136-145); Total Protein 9.3 g/dL (6.4-8.2)
[2021-07-05 17:17] VITALS: BP 119/72; PULSE 91; RESP 12; O2SAT 99
--- NOTE | 2021-07-05 17:24 | DI.VRAD_ITS ---
PROCEDURE INFORMATION: Exam: US Pelvis Complete, Transabdominal and US Pelvis, Transvaginal Exam date and time: 07/05/2021 3:39 PM Age: 31 years old Clinical indication: Other: Spotting; Pelvic pain; Patient HX: HX cyst rupture and pelvic congestion syndrome and known right ptotic kidney TECHNIQUE: Imaging protocol: Real-time transabdominal and transvaginal pelvic ultrasound (complete) with image documentation. Transvaginal imaging was used for better evaluation of the endometrium, adnexa, and/or cervix. COMPARISON: [facility] US PELVIS TRANSVAGINAL 06/27/2020 11:32 AM FINDINGS: Uterus/cervix: Uterus measures 6.4 x 5.2 x 3.6 cm. Endometrium is 8 mm in thickness. Right adnexa: Right ovary measures 3.4 x 1.2 x 2.1 cm. Mildly complex cystic structures are seen. This may represent a hemorrhagic cyst. Left adnexa: Left ovary demonstrates a few cysts that are probably normal for age. Intraperitoneal space: No intraperitoneal fluid. Urinary bladder: Normal. 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 Vasculature: Prominent parametrial vessels noted. IMPRESSION: No acute pathology. Complex cystic structure in the right ovary may represent a resolving hemorrhagic cyst. Differential includes other entities. Dictated and Authenticated by: Tejinder Mercedes MD. Ordering:HAZEL Giraldo MD
[2021-07-08 16:10] LABS: Chlamydia Result Negative (Negative); GC Result Negative (Negative)
== END 2021-07-05 17:57 | disposition home or self-care (01) ==
PROVIDERS: Physician Assistant; Emergency Provider Registered Nurse Emergency; PCP Nurse Practitioner
DX: N94.89 Other specified conditions associated with female genital organs and menstrual cycle (principal); N83.292 Other ovarian cyst, left side
CPT/HCPCS: 36415; 80053; 81025; 83690; 87491; 87591; 99284; 76830; 76856; 81003; 81015; 85025; 87086; 99283

== ENCOUNTER 2021-07-10 22:18 | Outpatient (REF) | payer OTHER, SELFPAY | END 2021-07-10 22:19 | disposition home or self-care (01) | LOC: LBN 22:18 | PROVIDERS: PCP Nurse Practitioner; Visit Provider Obstetrics & Gynecology | DX: N89.8 Other specified noninflammatory disorders of vagina (principal) | CPT/HCPCS: 87480; 87510; 87660 ==

== ENCOUNTER 2022-02-19 16:28 | Emergency (ER) | payer OTHER, SELFPAY ==
[2022-02-19 16:30] VITALS: BP 124/89; PULSE 111; RESP 18; TEMP 37.5; O2SAT 100
--- NOTE | 2022-02-19 16:30 | DI.CT_ITS ---
Exam(s) CT HEAD WO EXAM: CT HEAD WO CLINICAL HISTORY: Trauma. TECHNIQUE: Imaging Protocol: Axial computed tomography images with coronal and sagittal reformatted images were created and reviewed COMPARISON: No exams were available for comparison FINDINGS: Ventricles and Extra axial spaces: Normal in size and morphology for the patient's age. Hemorrhage: None. Cerebral parenchyma: Normal. Midline shift: None. Brainstem/Cerebellum: Normal. Calvarium: Normal. Visualized Paranasal sinuses/Mastoids: Clear. Soft Tissues: Mild soft tissue swelling of the scalp overlying the left frontal bone. IMPRESSION: 1. No acute intracranial process. 2. Mild soft tissue swelling over the left frontal bone. RADIATION DOSE DELIVERED: 670.57mGy.cm Total DLP DATA REPOSITORY: All CT scans at this facility are submitted to the National Radiology Data Registry (NRDR) Dose Index Registry (DIR) with the [employer] (ACR). RADIATION OPTIMIZATION: All CT scans at this facility use at least one of these dose optimization te chniques: automated exposure control; mA and/or kV adjustment per patient size (includes targeted exa ms where dose is matched to clinical indication); or iterative reconstruction.
--- NOTE | 2022-02-19 16:30 | RT.EKG_ITS ---
APPROVED REPORT Exam: Resting ECG Reason for Exam: trauma Patient Location: E HR:112 bpm ECG Measurements Heart Rate 112 AXIS ME 104 P 67 QRSd 78 QRS 73 QT 320 T 28 QTc 439 Conclusion Sinus tachycardia...rate> 99 sinus thacycardia, normal axis, normal intervals, flat T waves III
--- NOTE | 2022-02-19 16:43 | DI.CT_ITS ---
Exam(s) CT CHEST/ABD/PEL WO CT THORACIC LUMBAR SPINE REC EXAM: CT CHEST/ABD/PEL WO and CT thoracic and lumbar spine recons CLINICAL HISTORY: Trauma, Chest Pain TECHNIQUE: Imaging Protocol: Axial computed tomography images with coronal and sagittal reformatted images were created and reviewed COMPARISON: CT CT ABDOMEN PELVIS W from 07/12/[address] THORACIC LUMBAR SPINE REC from 02/19/2022 FINDINGS: Lack of IV contrast does limit evaluation of the abdominal pelvic organs. CHEST: Tracheobronchial tree: Patent where visualized. Pulmonary parenchyma: No consolidation or dominant measurable mass. No architectural distortion. Mediastinum and Ilsa: No dominant adenopathy or fluid collection. The esophagus is unremarkable. Thyroid gland: Unremarkable. Pleura: No effusion or pneumothorax. Heart: The heart is not dilated. No coronary artery calcifications are seen. No pericardial effusion. Aorta: Thoracic aorta non-dilated. Lymph nodes: Within normal limits. Bones:Within normal limits for the patient's age. Soft tissues: Unremarkable. Thoracic spine recons: No acute fracture or subluxation is present. ABDOMEN: Liver: Normal density. No measurable mass. Gallbladder and Biliary Tract: No radiodense calculus or dilation. Pancreas: Normal density, no abnormal calcifications or inflammatory process. Spleen: Normal. Adrenals: No masses seen. Kidneys: Normal size, contour and axis. No radiodense stones or obstructive uropathy. No masses seen. Abdominal Aorta: Abdominal portion non-dilated. Bowel: No obstruction or bowel wall thickening. No evidence of appendicitis. Peritoneal Cavity: No ascites, collection or mesenteric inflammatory response. No free air. Lymph Nodes: Within normal limits. Bones: Within normal limits for the patient's age. Soft Tissues: Unremarkable. PELVIS: Bladder: Symmetric distention, no gross wall thickening. Reproductive Organs: Unremarkable as visualized. Lymph Nodes: Within normal limits. Bones: Within normal limits for the patient's age. Lumbar spine recons: No acute fracture or subluxation is present. IMPRESSION: Unremarkable CT scan of the chest, abdomen and pelvis. RADIATION DOSE DELIVERED: Total DLP Total DLP DATA REPOSITORY: All CT scans at this facility are submitted to the National Radiology Data Registry (NRDR) Dose Index Registry (DIR) with the [employer] (ACR). RADIATION OPTIMIZATION: All CT scans at this facility use at least one of these dose optimization te chniques: automated exposure control; mA and/or kV adjustment per patient size (includes targeted exa ms where dose is matched to clinical indication); or iterative reconstruction.
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
[2022-02-19] MEDS: Normal Saline 1,000 ML 1000 ML IV (17:26)
[2022-02-19 17:32] LABS: Abs Immature Grans 0.05 10^3/uL (0.0-0.06); Absolute Basophil Count 0.03 10^3/uL (0.0-0.2); Absolute Eosinophil Count 0.03 10^3/uL (0.0-0.7); Absolute Lymphocyte Count 3.07 10^3/uL (1.2-3.4); Absolute Monocyte Count 0.65 10^3/uL (0.1-0.8); Absolute Neutrophil Count 9.76 10^3/uL (1.2-6.7); Basophils % 0.2; Eosinophils % 0.2; HCT 39.2 % (36.0-46.0); HGB 14.1 g/dL (11.2-15.7); Immature Grans % 0.4; Lymphocytes % 22.6; MCH 29.9 pg (27.0-33.0); MCV 83 fL (80-95); MPV 9.6 fL (8.0-11.0); Monocytes % 4.8; Neutrophils % 71.8; Platelet Count 291 10^3/uL (130-400); RBC 4.72 10^6/uL (3.93-5.22); RDW 11.8 % (11.7-14.6); RDW-SD 35.7 fL; WBC 13.59 10^3/uL (4.4-10.8)
[2022-02-19 17:45] LABS: ALT 58 U/L (14-59); AST 64 U/L (15-37); Albumin 4.5 g/dL (3.4-5.0); Alkaline Phosphatase 61 U/L (46-116); Anion Gap 10.1 mmol/L (3-11); BUN 17 mg/dL (7-18); Bilirubin, Total 0.6 mg/dL (0.2-1.0); CO2 24.9 mmol/L (21.0-32.0); CREATININE 0.8 mg/dL (0.55-1.02); Calcium 9.4 mg/dL (8.5-10.1); Chloride 100 mmol/L (98-107); Glucose 103 mg/dL (74-106); Lipase 62 U/L (73-393); Potassium 3.6 mmol/L (3.5-5.1); Sodium 135 mmol/L (136-145); Total Protein 7.8 g/dL (6.4-8.2); Troponin I < 50 ng/L (<or=60)
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
[2022-02-19 20:15] VITALS: BP 112/76; PULSE 85; RESP 18; O2SAT 100
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
== END 2022-02-19 20:16 | disposition home or self-care (01) ==
PROVIDERS: Emergency Provider Registered Nurse Emergency; PCP Nurse Practitioner
DX: R07.89 Other chest pain (principal); M25.511 Pain in right shoulder; M25.521 Pain in right elbow; S09.8XXA Other specified injuries of head, initial encounter; R51.9 Headache, unspecified; V03.90XA Pedestrian on foot injured in collision with car, pick-up truck or van, unspecified whether traffic or nontraffic accident, initial encounter
CPT/HCPCS: 71250; 80053; 83690; 93005; 96361; 96365; 99285; 70450; 74176; 84484; 84703; 85025; 93010; 99284; J0131

== ENCOUNTER 2022-07-02 12:41 | Emergency (ER) | payer SELFPAY ==
[2022-07-02 12:45] VITALS: BP 119/77; PULSE 103; RESP 18; TEMP 36.9; O2SAT 100
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
--- NOTE | 2022-07-02 13:30 | DI.RAD_ITS ---
Exam(s) XR SHOULDER LT COMPLETE 2+V EXAM: XR SHOULDER LT COMPLETE 2+V CLINICAL HISTORY: pain left shoulder. TECHNIQUE: 2D digital imaging was performed. Three views. COMPARISON: No exams were available for comparison FINDINGS: BONES: No acute fracture is present. No bony destructive lesion is seen. JOINTS: No dislocation present. SOFT TISSUE: Normal. IMPRESSION: Unremarkable radiographs of the left shoulder. DATA REPOSITORY: RADIATION DOSE DELIVERED:
[2022-07-02] MEDS: Ibuprofen 600 MG TAB PO (13:56)
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
== END 2022-07-02 16:58 | disposition home or self-care (01) ==
PROVIDERS: Emergency Provider Student in an Organized Health Care Education/Training Program; PCP Nurse Practitioner
DX: G89.11 Acute pain due to trauma (principal); M25.511 Pain in right shoulder; M25.512 Pain in left shoulder; F98.8 Other specified behavioral and emotional disorders with onset usually occurring in childhood and adolescence; F17.290 Nicotine dependence, other tobacco product, uncomplicated; W22.8XXA Striking against or struck by other objects, initial encounter
CPT/HCPCS: 81025; 99284; 72125; 73030; 99282

== ENCOUNTER 2022-09-09 14:34 | Outpatient (CLI) | payer SELFPAY ==
--- NOTE | 2022-09-09 14:30 | DI.RAD_ITS ---
Exam(s) XR SHOULDER RT COMPLETE 2+V EXAM: XR SHOULDER RT COMPLETE 2+V CLINICAL HISTORY: shoulder pain. TECHNIQUE: 2D digital imaging was performed of the right shoulder. Three images were obtained. AP, axillary views were obtained. COMPARISON: None. FINDINGS: BONES: No acute fracture is present. No bony destructive lesion is seen. JOINTS: No dislocation present. SOFT TISSUE: Normal. IMPRESSION: Unremarkable radiographs of the right shoulder. DATA REPOSITORY: RADIATION DOSE DELIVERED:
== END 2022-09-09 14:35 | disposition home or self-care (01) ==
LOC: DIORS 14:34
PROVIDERS: PCP Nurse Practitioner; Referring Provider Nurse Practitioner; Visit Provider Student in an Organized Health Care Education/Training Program
DX: M25.511 Pain in right shoulder (principal)
CPT/HCPCS: 73030

== ENCOUNTER 2024-07-12 15:40 | Outpatient (CLI) | payer MEDICAID, SELFPAY ==
--- NOTE | 2024-07-12 15:30 | RT.EKG_ITS ---
APPROVED REPORT Exam: Resting ECG Reason for Exam: orthostasis Patient Location: O HR:89 bpm ECG Measurements Heart Rate 89 AXIS OH 119 P 81 QRSd 84 QRS 67 QT 354 T 26 QTc 431 Conclusion Sinus rhythm...normal P axis, V-rate 50- 99 Borderline short OH interval...OH int <120mS Probable left atrial enlargement...P >50mS, <-0.10mV V1 RSR' in V1 or V2, probably normal variant...small R' only Minimal ST depression, inferior leads...ST <-0.04mV, II III aVF
== END 2024-07-12 15:41 | disposition home or self-care (01) ==
LOC: DI.KIM 15:41
PROVIDERS: PCP Nurse Practitioner; Visit Provider Nurse Practitioner
DX: I95.1 Orthostatic hypotension (principal)
CPT/HCPCS: 93010

== ENCOUNTER 2024-07-19 15:55 | Emergency (ER) | payer MEDICAID, SELFPAY ==
[2024-07-19 15:56] VITALS: BP 137/77; PULSE 132; RESP 18; TEMP 36.1; O2SAT 99
--- NOTE | 2024-07-19 16:00 | RT.EKG_ITS ---
APPROVED REPORT Exam: Resting ECG Reason for Exam: rapid heart rate Patient Location: E HR:108 bpm ECG Measurements Heart Rate 108 AXIS FL 116 P 83 QRSd 73 QRS 70 QT 332 T 25 QTc 447 Conclusion Sinus tachycardia 108 no stemi
[2024-07-19 16:04] VITALS: BP 137/77; PULSE 132; RESP 18; TEMP 36.1; O2SAT 99
[2024-07-19 17:04] VITALS: BP 139/100; PULSE 106; RESP 16; O2SAT 97
--- NOTE | 2024-07-19 17:45 | RT.EKG_ITS ---
APPROVED REPORT Exam: Resting ECG Reason for Exam: chest pressure Patient Location: E HR:99 bpm ECG Measurements Heart Rate 99 AXIS CO 114 P 152 QRSd 75 QRS 105 QT 339 T 21 QTc 436 Conclusion Sinus rhythm. 99 normal axis no stemi
[2024-07-19 18:02] VITALS: BP 126/86; PULSE 101; RESP 18; TEMP 36.2; O2SAT 98
--- NOTE | 2024-07-19 18:52 | ED.GENADUL_ITS ---
Discharge Plan Disposition Patient Disposition: Home Condition: Stable Discharge Details Clinical Impression: Near syncope, Urinary frequency, Abnormal vaginal bleeding Primary Care Provider: Adrianna Jimenez ED Provider: Deedee Lemus Home Meds and New Rx's Prescriptions: No Action dextroamphetamine-amphetamine 30 mg capsule,extended release 24hr 30 mg PO DAILY MDD 30mg Qty: 28 0RF doxycycline monohydrate 100 mg capsule See Rx Instructions .ROUTE .COMPLEX Qty: 90 0RF Dose Instruction: TAKE ONE CAPSULE BY MOUTH EVERY DAY Rx Instructions: TAKE ONE CAPSULE BY MOUTH EVERY DAY spironolactone 100 mg tablet 100 mg PO QAM Qty: 90 3RF dextroamphetamine-amphetamine 30 mg capsule,extended release 24hr 30 mg PO DAILY MDD 30mg Qty: 28 0RF dextroamphetamine-amphetamine 30 mg capsule,extended release 24hr 30 mg PO DAILY MDD 30mg Qty: 28 0RF Discharge Instructions Instructions: Near Fainting, Heavy Periods ED Additional Instructions: At this time no evidence of infection, your workup is largely unremarkable today. Please change positions slowly. Continue to follow-up with your PCP regarding your symptoms or further evaluation. At this time no evidence of need for blood transfusion no evidence of need for urinary tract infection or need for antibiotics. Drink lots of fluids, Follow up with primary care provider in 3-5 days. Return to ED sooner if any worsening or concerns. Stand Alone Forms: Work Release Referrals: Adrianna Jimenez, WATCH AND CLOCK REPAIR CLERK [Primary Care Provider] - 3 days HPI General Mode of arrival: ambulatory . Date/Time Provider Initiated Documentation: 07/19/24 16:07 . Limitations to Documentation: no limitations . Information obtained by: patient, RN notes reviewed and old records reviewed . HPI Narrative: 34-year-old female presents to the ER with a chief complaint of multiple complaints. She reports increased heart rate, syncopal episodes, increased urination, heavy vaginal bleeding she has had 3 periods in the last month. And PCP concerns for POTS syndrome. Upon my initial exam patient is lying on the floor in the room. She reports that she feels dizzy and lightheaded and thought she was going to pass out. She denies any abdominal pain. She reports large amounts of frequent urination and hesitancy. She does have a history of irregular menstrual cycles. Related Data Home Medications ?Medication ?Instructions ?Recorded ?Confirmed doxycycline monohydrate 100 mg See Rx Instructions .Route 09/29/23 07/19/24 capsule .COMPLEX #90 caps spironolactone 100 mg tablet 100 mg PO QAM #90 tabs 09/29/23 07/19/24 dextroamphetamine-amphetamine ER 30 mg PO DAILY #28 caps 05/04/24 07/19/24 30 mg 24hr capsule,extend release dextroamphetamine-amphetamine ER 30 mg PO DAILY #28 caps 06/20/24 07/19/24 30 mg 24hr capsule,extend release dextroamphetamine-amphetamine ER 30 mg PO DAILY #28 caps 06/20/24 07/19/24 30 mg 24hr capsule,extend release Previous Rx's ?Medication ?Instructions ?Recorded doxycycline monohydrate 100 mg See Rx Instructions .Route 09/29/23 capsule .COMPLEX #90 caps spironolactone 100 mg tablet 100 mg PO QAM #90 tabs 09/29/23 dextroamphetamine-amphetamine ER 30 mg PO DAILY #28 caps 05/04/24 30 mg 24hr capsule,extend release dextroamphetamine-amphetamine ER 30 mg PO DAILY #28 caps 06/20/24 30 mg 24hr capsule,extend release dextroamphetamine-amphetamine ER 30 mg PO DAILY #28 caps 06/20/24 30 mg 24hr capsule,extend release Allergies Allergy/AdvReac Type Severity Reaction Status Date / Time lamotrigine (From Lamictal) AdvReac Intermediate mouth sores Verified 07/19/24 16:01 gluten AdvReac Mild Abdomen Verified 07/19/24 16:01 Bloating lactose AdvReac Mild Abdomen Verified 07/19/24 16:01 bloating General Stated Complaint: [facility]Medical KAMALJIT: 3 Review of Systems All systems reviewed & are unremarkable except as noted in HPI and below Constitutional Constitutional: Reports as per HPI ENT Ears, Nose, Mouth, and Throat: Reports dizziness Cardiovascular Cardiovascular: Reports syncope Genitourinary Genitourinary: Reports abnormal menses, Reports urinary urgency and Reports other (Urinary frequency) Neurologic Neurologic: Reports as per HPI, Reports dizziness and Reports syncope Exam Narrative Exam Narrative: Constitutional: Alert and oriented x3. Appears stated age. Normal body habitus. Head: Normocephalic, no trauma. Eyes: Pupils PERRL, Red reflex noted, EOM's intact. Eyelids symmetrical without lesions, discharge, or swelling. ENT: Bilateral TM's WNL, External ear normal to inspection, no mastoid TTP, swelling, or erythema, Nasal turbinates WNL, no nasal discharge. Normal dentition, Posterior pharynx WNL, no exudate. Chest: RRR, Normal S1, S2, distal pulses intact. Resp: Lungs clear to auscultation bilaterally, no wheezes, rales, or rhonchi. Abdomen: Soft, non-distended, Normoactive bowel sounds all 4 quads. Musculoskeletal: Normal gait, Moves all 4 extremities without difficulty. Skin: No suspicious rashes or lesions. Capillary refill less than 2 sec. Neurologic: Cranial nerves II-XII intact. Alert and oriented x 3. Motor: No deficits noted. Sensory: Intact bilaterally all 4 extremities. Hematologic/Lymphatic: No ecchymosis, no lymphadenopathy. Course Vital Signs Vital signs: Vital Signs Temperature 36.1 C L 07/19/24 15:56 Pulse 132 H 07/19/24 15:56 Respiratory Rate 18 07/19/24 15:56 Blood Pressure 137/77 07/19/24 15:56 Pulse Oximetry 99 07/19/24 15:56 Temperature 36.2 C L 07/19/24 18:02 Temperature Source Temporal Artery Scan 07/19/24 18:02 Pulse 101 H 07/19/24 18:02 Respiratory Rate 18 07/19/24 18:02 Respiratory Effort Normal, Non-Labored 07/19/24 18:02 Respiratory Depth Normal 07/19/24 18:02 Respiratory Pattern Normal 07/19/24 18:02 Blood Pressure 126/86 07/19/24 18:02 Blood Pressure Mean 99 07/19/24 18:02 Blood Pressure Position Sitting 07/19/24 18:02 Pulse Oximetry 98 07/19/24 18:02 Oxygen Delivery Method Room Air 07/19/24 18:02 Oxygen Flow Rate 0 07/19/24 18:02 Medical Decision Making 34-year-old female presents to the ER with a chief complaint of multiple complaints. She reports increased heart rate, syncopal episodes, increased urination, heavy vaginal bleeding she has had 3 periods in the last month. And PCP concerns for POTS syndrome. Upon my initial exam patient is lying on the floor in the room. She reports that she feels dizzy and lightheaded and thought she was going to pass out. She denies any abdominal pain. She reports large amounts of frequent urination and hesitancy. She does have a history of irregular menstrual cycles. Orthostatics show heart rate increases from 88-1 04 upon standing however no drop in blood pressure at this time. At this time workup is largely unremark able. Urinalysis does show moderate blood trace leukocytes 3-5 WBCs culture is not indicated at this time. Will refer back to PCP for further evaluation and treatment. Discussed results with patient and family who verbalized understanding. She is laying on the floor but did instruct her to get back into the chair however she reports that it does not recline enough. This text was generated using [employer] system, please disregard any oddities of phrase or misspellings. Medical Records Medical records reviewed: Yes I reviewed the patient's medical records. Lab Data Lab results reviewed: Yes I reviewed the patient's lab results. Labs: Laboratory Tests Range/Units 07/19/24 07/19/24 19:05 19:57 WBC (4.4-10.8) 10^3/uL 7.36 RBC (3.93-5.22) 10^6/uL 4.31 Hgb (11.2-15.7) g/dL 12.8 Hct (36.0-46.0) % 36.5 MCV (80-95) fL 85 MCH (27.0-33.0) pg 29.7 MCHC (32.0-36.0) % 35.1 RDW (11.7-14.6) % 11.2 L Plt Count (130-400) 10^3/uL 274 MPV (8.0-11.0) fL 9.5 Immature Gran % % 0.3 Neutrophils % % 55.8 Lymphocytes % % 37.5 Monocytes % % 4.9 Eosinophils % % 1.0 Basophils % % 0.5 Nucleated RBC % (0.0-0.3) % 0.0 Absolute Neutrophils (1.2-6.7) 10^3/uL 4.11 Absolute Lymphocytes (1.2-3.4) 10^3/uL 2.76 Absolute Monocytes (0.1-0.8) 10^3/uL 0.36 Absolute Eosinophils (0.0-0.7) 10^3/uL 0.07 Absolute Basophils (0.0-0.2) 10^3/uL 0.04 Sodium (136-145) mmol/L 139 Potassium (3.5-5.1) mmol/L 4.2 Chloride (98-107) mmol/L 105 Carbon Dioxide (21.0-32.0) mmol/L 26.9 Anion Gap (3-11) mmol/L 7.1 BUN (7-18) mg/dL 9 Creatinine (0.55-1.02) mg/dL 0.8 Est GFR (CKD-EPI 2020) (mL/min/1.73m2) 99.71 Glucose (74-106) mg/dL 100 Calcium (8.5-10.1) mg/dL 9.2 Magnesium (1.8-2.4) mg/dL 1.9 Total Bilirubin (0.2-1.0) mg/dL 0.61 AST (15-37) U/L 25 ALT (14-59) U/L 25 Alkaline Phosphatase (46-116) U/L 56 Troponin I (<or=51) ng/L < 4 Total Protein (6.4-8.2) g/dL 7.5 Albumin (3.4-5.0) g/dL 4.2 Urine Color (Yellow) Yellow Urine Clarity (Clear) Clear Urine pH (5-8) 5.5 Ur Specific [place] (1.005-1.025) <= 1.005 Urine Protein (Neg-Trace) mg/dL Negative Urine Ketones (Negative) mg/dL Negative Urine Blood (Negative) Moderate H Urine Nitrite (Negative) Negative Urine Bilirubin (Negative) Negative Urine Urobilinogen (Up to 0.2) mg/dL 0.2 Ur Leukocyte Esterase (Negative) Trace H Urine RBC (0-2) HPF 0-2 Urine WBC (0-5) HPF 3-5 Ur Epithelial Cells (Negative) HPF Rare Urine Crystals (Negative) HPF Negative Urine Bacteria (Negative) HPF Rare Urine Casts (Negative) LPF Negative Urine Mucus (Negative) Negative Ur Culture Indicated? No Urine Glucose (Negative) mg/dL Negative Urine Opiates Screen (Negative) Negative Urine Methadone Screen (Negative) Negative Ur Barbiturates Screen (Negative) Negative Ur Tricyclics Screen (Negative) Negative Ur Amphetamines Screen (Negative) Positive A U Benzodiazepines Scrn (Negative) Negative Urine Cocaine Screen (Negative) Negative Ur THC Screen (Negative) Negative Quality:SDOH Health Related Social Needs: No Data to Display PFSH All Active Problems (Updated 07/19/24 @ 21:00 by Deedee Lemus NP) Abnormal vaginal bleeding (Acute) Urinary frequency (Acute) Near syncope (Acute) Complex posttraumatic stress disorder (Acute) Bipolar disorder (Acute) Carpal tunnel syndrome, left (Acute) Tendinitis of long head of biceps brachii of both shoulders (Acute) Cervicalgia (Acute) Family history of breast cancer (Acute) Mom with initial diagnosis at age 36, Early satiety (Acute) Spotting (Acute) Pelvic pain (Acute) Ovarian cyst (Acute) Suicide ideation (Acute) Discomfort of right eye (Acute) Sinus congestion (Acute) Lightheaded (Acute) Palpitations (Acute) Joint pain (Acute) Fatigue (Acute) Cold hands and feet (Acute) Eyelid dermatitis, allergic/contact (Acute) Abdominal pain (Acute) Low back pain (Chronic) Constipation (Chronic) Dysfunctional uterine bleeding (Acute) Rectal bleeding (Acute) Hemorrhage of corpus luteum cyst (Acute) Family history of breast cancer (Acute) Hoarse voice quality (Acute) Depression (Chronic 08/04/16) Anxiety (Chronic) Acne vulgaris (Acute 09/09/17) Derm [facility] [place] on high risk med: Isotretinooin 08/2017 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) Crohn's disease without complication (Acute 08/04/16) Dysmenorrhea, unspecified (Acute 12/15/16) Family history of breast cancer (Acute 08/04/16) Fibrocystic breast (Acute 08/04/16) Irregular menstrual cycle (Acute 12/15/16) Ovulation pain (Acute 12/15/16) Pelvic congestion syndrome (Acute 01/18/18) Rapid or irregular heartbeat (Acute 12/15/16) Medical History ADD (attention deficit disorder) Irregular menstrual cycle Surgical History wisdom teeth extraction Tonsillectomy Endoscopy Family History Mother Breast cancer 52yo; dx'ed late 30s Father Depression Mental disorder Grandfather Diabetes Essential hypertension Heart disease Hyperlipidemia Grandfather Diabetes Essential hypertension Hyperlipidemia Grandmother No problems noted. Grandmother No problems noted. 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 [employer] Sexually active: Yes Do you think of yourself as: lesbian/valenzuela/homosexual Current gender identity: female What type of physical activity do you participate in: irregular exercise Frequency: other Details: active w/kids at work Do you feel safe at home: Yes Do you feel safe in your relationship?: Yes Female Reproductive History Menstrual Age of Menarche: 13 control method: progestin IUCD History History 2 Para Hx # Term Pregnancies Multiple births Hx # Pregnancies Ectopic pregnancies AB induced Hx Number of Living Children AB spontaneous 2 PAWSS Have you Been Recently Intoxicated or Drunk Within the Last 30 days?: No Have you Ever Experienced Previous Episodes of Alcohol Withdrawal?: No Have you ever Experienced Withdrawal Seizures?: No Have you ever Experienced Delirium Tremens(DT)s?: No Have you ever undergone Alcohol Rehabilitation Treatment (i.e, inpt ot outpatient treatment programs)?: No Have you ever Experienced Blackouts?: No Have you ever Combined Alcohol with other Downers within the last 90 days?: No Have you ever Combined Alcohol with any other Substance of Abuse during the last 90 days?: No Positive Blood Alcohol level on Presentation? [PCS.BAL]: No Evidence of Increased Autonomic Activity (i.e. HR>120, tremor, sweating, agitation, nausea)?: No Result: 0
[2024-07-19 19:09] VITALS: RESP 18
[2024-07-19 19:33] VITALS: BP 111/84; BP 115/79; BP 128/95; PULSE 104; PULSE 82; PULSE 88
[2024-07-19 19:54] LABS: Bilirubin Negative (Negative); Blood Moderate (Negative); Clarity Clear (Clear); Glucose Negative (Negative); Ketones Negative (Negative); Leukocyte Esterase Trace (Negative); Nitrite Negative (Negative); Specific Gravity <= 1.005 (1.005-1.025); Urobilinogen 0.2 mg/dL (Up to 0.2); pH 5.5 (5-8)
[2024-07-19 20:02] LABS: Abs Immature Grans 0.02 10^3/uL (0.0-0.06); Absolute Basophil Count 0.04 10^3/uL (0.0-0.2); Absolute Eosinophil Count 0.07 10^3/uL (0.0-0.7); Absolute Lymphocyte Count 2.76 10^3/uL (1.2-3.4); Absolute Monocyte Count 0.36 10^3/uL (0.1-0.8); Absolute Neutrophil Count 4.11 10^3/uL (1.2-6.7); Basophils % 0.5 %; HCT 36.5 % (36.0-46.0); HGB 12.8 g/dL (11.2-15.7); Immature Grans % 0.3 %; Lymphocytes % 37.5 %; MCH 29.7 pg (27.0-33.0); MCHC 35.1 % (32.0-36.0); MCV 85 fL (80-95); MPV 9.5 fL (8.0-11.0); Monocytes % 4.9 %; Neutrophils % 55.8 %; Platelet Count 274 10^3/uL (130-400); RBC 4.31 10^6/uL (3.93-5.22); RDW 11.2 % (11.7-14.6); RDW-SD 34.7 fL; WBC 7.36 10^3/uL (4.4-10.8)
[2024-07-19 20:04] LABS: *AMPHETAMINES SCREEN URINE Positive (Negative); *BARBITURATES SCREEN URINE Negative (Negative); *BENZODIAZEPINES SCREEN URINE Negative (Negative); Cannabinoids THC Negative (Negative); Cocaine Screen,Urine Negative (Negative); METHADONE URINE SCREEN Negative (Negative); OPIATES URINE SCREEN Negative (Negative)
[2024-07-19 20:06] LABS: Bacteria Rare HPF (Negative); C & S Indicated? No; Casts Negative LPF (Negative); Crystals Negative HPF (Negative); Epithelial Cells Rare HPF (Negative); Mucus Negative (Negative); RBC 0-2 HPF (0-2)
[2024-07-19 20:07] LABS: Tricyclic Antidepressants Negative (Negative)
[2024-07-19 20:20] LABS: ALT 25 U/L (14-59); AST 25 U/L (15-37); Albumin 4.2 g/dL (3.4-5.0); Alkaline Phosphatase 56 U/L (46-116); Anion Gap 7.1 mmol/L (3-11); BUN 9 mg/dL (7-18); Bilirubin, Total 0.61 mg/dL (0.2-1.0); CO2 26.9 mmol/L (21.0-32.0); CREATININE 0.8 mg/dL (0.55-1.02); Calcium 9.2 mg/dL (8.5-10.1); Chloride 105 mmol/L (98-107); Estimated GFR 99.71 (mL/min/1.73m2); Glucose 100 mg/dL (74-106); Magnesium 1.9 mg/dL (1.8-2.4); Potassium 4.2 mmol/L (3.5-5.1); Sodium 139 mmol/L (136-145); Total Protein 7.5 g/dL (6.4-8.2)
[2024-07-19 20:22] LABS: Troponin I < 4 ng/L (<or=51)
[2024-07-20 17:52] LABS: Osmolality, Urine 166 mOsm/kg (150-1150)
== END 2024-07-19 21:14 | disposition home or self-care (01) ==
PROVIDERS: Emergency Provider Registered Nurse Emergency; PCP Nurse Practitioner
DX: R35.0 Frequency of micturition (principal); R00.2 Palpitations; N93.8 Other specified abnormal uterine and vaginal bleeding; F17.290 Nicotine dependence, other tobacco product, uncomplicated
CPT/HCPCS: 80053; 80307; 81025; 83935; 93005; 99283; 81003; 81015; 83735; 84484; 85025; 93010

== ENCOUNTER 2024-07-20 03:33 | Outpatient (CLI) | payer MEDICAID, SELFPAY ==
[2024-07-20 15:16] LABS: Abs Immature Grans 0.01 10^3/uL (0.0-0.06); Absolute Basophil Count 0.02 10^3/uL (0.0-0.2); Absolute Eosinophil Count 0.06 10^3/uL (0.0-0.7); Absolute Lymphocyte Count 1.79 10^3/uL (1.2-3.4); Absolute Monocyte Count 0.33 10^3/uL (0.1-0.8); Absolute Neutrophil Count 3.24 10^3/uL (1.2-6.7); Basophils % 0.4 %; Eosinophils % 1.1 %; HCT 36.5 % (36.0-46.0); HGB 12.5 g/dL (11.2-15.7); Immature Grans % 0.2 %; Lymphocytes % 32.8 %; MCH 29.6 pg (27.0-33.0); MCHC 34.2 % (32.0-36.0); MCV 87 fL (80-95); MPV 9.6 fL (8.0-11.0); Monocytes % 6.1 %; Neutrophils % 59.4 %; Platelet Count 241 10^3/uL (130-400); RBC 4.22 10^6/uL (3.93-5.22); RDW 11.4 % (11.7-14.6); RDW-SD 35.9 fL; WBC 5.45 10^3/uL (4.4-10.8)
[2024-07-20 15:47] LABS: ALT 21 U/L (14-59); AST 14 U/L (15-37); Albumin 3.9 g/dL (3.4-5.0); Alkaline Phosphatase 54 U/L (46-116); Anion Gap 7.3 mmol/L (3-11); BUN 7 mg/dL (7-18); Bilirubin, Total 0.45 mg/dL (0.2-1.0); CO2 26.7 mmol/L (21.0-32.0); CREATININE 0.7 mg/dL (0.55-1.02); Calcium 8.8 mg/dL (8.5-10.1); Calculated LDL 65 mg/dL (<100); Chloride 107 mmol/L (98-107); Cholesterol 152 mg/dL (<200); Estimated GFR 117.04 (mL/min/1.73m2); Glucose 83 mg/dL (74-106); HDL Cholesterol 74 mg/dL (40-60); Potassium 3.9 mmol/L (3.5-5.1); Sodium 141 mmol/L (136-145); TSH (W/Ref FT4) 0.53 uIU/mL (0.36-3.74); Total Protein 6.9 g/dL (6.4-8.2); Triglyceride 66 mg/dL (<150)
[2024-07-22 13:50] LABS: ANA Interpretation Negative (Negative)
== END 2024-07-20 03:34 | disposition home or self-care (01) ==
LOC: LBO 03:33
PROVIDERS: PCP Nurse Practitioner; Visit Provider Nurse Practitioner
DX: I95.1 Orthostatic hypotension (principal); Z13.220 Encounter for screening for lipoid disorders; R68.2 Dry mouth, unspecified; R53.83 Other fatigue; J45.909 Unspecified asthma, uncomplicated; I10 Essential (primary) hypertension; R55 Syncope and collapse
CPT/HCPCS: 36415; 80053; 80061; 84443; 85025; 86038

== ENCOUNTER 2024-07-20 14:02 | Outpatient (REF) | payer MEDICAID, SELFPAY ==
--- NOTE | 2024-07-20 13:35 | PAPFT_PTH ---
PATIENT: Klaus Bond LOC: [facility] U#:[id number] AGE/SX: 34/F ROOM: RE07/20/[address]: Elisha Murillo : 1990 BED: DIS: 07/20/2024 SPEC #: [id number] RECD: 07/20/24 18:21 STATUS: YUE REAkash #: [id number] SERGE: 07/20/24 13:[address]: Elisha Murillo DEPT: [facility] Cytology RECD BY: Vicky Estrada ENTERED: 07/20/24 18:21 SP TYPE: PAPFT OTHR DR: Adrianna Jimenez APRN Tissues: 1 - CX/ENDOCX FOR PAP SMEARS Procedures: PAP THIN PREP/[facility] Screening HPV DNA PROBE Comments: [id number] (HPV 16 & 18/45)
== END 2024-07-20 14:03 | disposition home or self-care (01) ==
LOC: LBN 14:02
PROVIDERS: PCP Nurse Practitioner; Visit Provider Obstetrics & Gynecology Gynecology
DX: R55 Syncope and collapse (principal)
CPT/HCPCS: 88142; 87624